=== PATIENT | male | born 1945 | race Caucasian/White ===

== ENCOUNTER 2024-02-16 14:05 | Outpatient (OUT) | payer MEDICARE, SELFPAY | END 2024-02-16 14:06 | disposition home or self-care (01) | LOC: LAB 14:09 | PROVIDERS: PCP Family Medicine; Visit Provider Urology | DX: R35.0 Frequency of micturition (principal) | CPT/HCPCS: 87086 ==

== ENCOUNTER 2024-05-16 14:33 | Emergency (ER) | payer MEDICARE, SELFPAY ==
[2024-05-16 14:50] VITALS: BP 164/80; PULSE 77; TEMP 37; O2SAT 99; BMI 25.7
--- NOTE | 2024-05-16 15:01 | ED_ITS ---
HPI HPI - General Adult General Chief complaint: Urogenital-Male Stated complaint: CONSTIPATION Time Seen by Provider: 05/16/24 14:37 Source: patient Mode of arrival: walk-in History of Present Illness HPI narrative: Patient is a 78-year-old male who presents to the emergency department for worsening urinary symptoms over the last several weeks. He he was treated for urinary tract infection back in February by his urologist, he states he has been off the antibiotics since that time. In the last 2 weeks he has developed pressure and burning with urination and states he is noticing difficulty with his urine stream and is dribbling more. He has not seen any blood in his urine recently. No fevers or vomiting. He has minimal pain in the low abdomen. No flank or back pain. Related Data Allergies Allergy/AdvReac Type Severity Reaction Status Date / Time nitrofurantoin (From Allergy Unknown Verified 05/16/24 14:50 Macrobid) Sulfa (Sulfonamide Allergy Unknown Verified 05/16/24 14:50 Antibiotics) Opioid HPI Opioid Management Most Recent Opioid Data: No Data to Display Review of Systems ROS Constitutional Denies: fever or chills Ears, nose, mouth, and throat Denies: throat pain or nasal congestion Cardiovascular Denies: chest pain Respiratory Denies: shortness of breath Gastrointestinal Reports: abdominal pain; Denies: nausea, vomiting or diarrhea Integumentary/Breast Denies: rash Neurological Denies: numbness in extremities or weakness in extremities Hematologic/Lymphatic Denies: easy bruising or easy bleeding PFSH PFSH Social History Little interest or pleasure in doing things: not at all Feeling down, depressed, or hopeless: not at all Exam Narrative Exam Narrative: Gen.: Awake, alert, in no distress Head: Normocephalic, atraumatic ENT: Moist mucous membranes Respiratory: No respiratory distress Gastrointestinal: Abdomen is soft, nondistended and nontender to palpation Extremities: Moves extremities equally Psych: Normal mood and affect Neuro: No focal neuro deficit Skin: Warm, dry, intact Constitutional Vital Signs, click to edit/add: Last Vital Signs Temp 98.6 F 05/16/24 14:50 Pulse 77 05/16/24 14:50 Resp 16 05/16/24 14:50 BP 164/80 H 05/16/24 14:50 Pulse Ox 99 05/16/24 14:50 O2 Del Method Room Air 05/16/24 14:50 Course Vital Signs Vital signs: Vital Signs Temperature 98.6 F 05/16/24 14:50 Pulse Rate 77 05/16/24 14:50 Respiratory Rate 16 05/16/24 14:50 Blood Pressure 164/80 H 05/16/24 14:50 Pulse Oximetry 99 05/16/24 14:50 Oxygen Delivery Method Room Air 05/16/24 14:50 Temperature 98.6 F 05/16/24 14:50 Pulse Rate 77 05/16/24 14:50 Respiratory Rate 16 05/16/24 14:50 Blood Pressure 164/80 H 05/16/24 14:50 Pulse Oximetry 99 05/16/24 14:50 Oxygen Delivery Method Room Air 05/16/24 14:50 Medical Decision Making MDM Narrative Medical decision making narrative: Labs these are unremarkable, patient with no complaints of fever, vomiting. He reports dribbling with urine stream and dysuria, he has no flank or back pain. He was able to urinate without difficulty in the emergency department. Urine culture was sent although urine specimen is clear. Abdomen is soft and benign in the emergency department. Symptoms have been ongoing for several weeks, patient reevaluated by attending physician and he should follow-up with his urologist. Reevaluated by attending physician prior to discharge. SHARED APC VISIT, PHYSICIAN ATTESTATION: [id number] I performed a substantive part of the MDM during the patient?s E/M visit. I personally evaluated and examined the patient. I personally made or approved the documented management plan and acknowledge its risk of complications. . ? Medical Records Medical records reviewed: Yes I reviewed the patient's medical records Lab Data Lab results reviewed: Yes I reviewed the patient's lab results Labs: Lab Results 05/16/24 05/16/24 Range/Units 15:03 15:17 WBC 7.3 (4.0-11.0) 10^3/uL RBC 4.51 L (4.70-6.10) 10^6/uL Hgb 13.5 L (14.0-18.0) g/dL Hct 39.5 L (42.0-54.0) % MCV 87.6 (80.0-94.0) fL MCH 29.9 (25.9-34.0) pg MCHC 34.2 (29.9-35.2) g/dL RDW 12.2 (11.0-15.0) % Plt Count 183 (150-450) 10^3/uL MPV 11.0 (9.5-13.5) fL Neut % (Auto) 63.0 (43.0-75.0) % Lymph % (Auto) 24.7 (20.5-60.0) % [place] % (Auto) 8.7 (1.7-12.0) % Eos % (Auto) 2.9 (0.9-7.0) % Baso % (Auto) 0.4 (0.2-2.0) % Neut # (Auto) 4.6 (1.4-6.5) 10^3/uL Lymph # (Auto) 1.8 (1.2-3.8) 10^3/uL [place] # (Auto) 0.6 (0.3-0.8) 10^3/uL Eos # (Auto) 0.2 (0.0-0.7) 10^3/uL Baso # (Auto) 0.0 (0.0-0.1) 10^3/uL Abs Immat Gran (auto) 0.02 (0.00-0.03) 10^3/uL Imm/Tot Granulo (auto) 0.3 (0.0-0.5) % Sodium 139 (136-145) mmol/L Potassium 4.3 (3.5-5.1) mmol/L Chloride 106 (98-107) mmol/L Carbon Dioxide 26.4 (21.0-32.0) mmol/L Anion Gap 10.9 BUN 25.0 H (7.0-18.0) mg/dL Creatinine 1.37 H (0.70-1.30) mg/dL Est GFR ( Amer) >60 (>=60 mL/min/1.73m^2) Est GFR (Non-Af Amer) 50 L (>=60 mL/min/1.73m^2) BUN/Creatinine Ratio 18.2 Glucose 121 H (74-106) mg/dL Calcium 9.1 (8.5-10.1) mg/dL Urine Color Lt. yellow (YELLOW) Urine Clarity Clear (CLEAR) Urine pH 6.0 (5.0-9.0) Ur Specific [place] 1.010 (1.005-1.025) Urine Protein Negative (NEG/TRACE) mg/dL Urine Glucose (UA) Negative (NEGATIVE) mg/dL Urine Ketones Negative (NEGATIVE) mg/dL Urine Occult Blood Negative (NEGATIVE) Urine Nitrite Negative (NEGATIVE) Urine Bilirubin Negative (NEGATIVE) Urine Urobilinogen 0.2 (0.2-1.0) EU/dL Ur Leukocyte Esterase Negative (NEGATIVE) Discharge Plan Discharge Chief Complaint: Urogenital-Male Clinical Impression: Dysuria Patient Disposition: Home, Self-Care Time of Disposition Decision: 16:54 Condition: Good Print Language: Polish Instructions: Dysuria (ED) Additional Instructions: Follow up with your urologist Referrals: BROOK MCKINNEY [Primary Care Provider] - 1 week
[2024-05-16 15:27] LABS: Basophils Percent Auto 0.4 % (0.2-2.0); Eosinophils Absolute Auto 0.2 10^3/uL (0.0-0.7); Eosinophils Percent Auto 2.9 % (0.9-7.0); Hematocrit 39.5 % (42.0-54.0); Hemoglobin 13.5 g/dL (14.0-18.0); Immature Granulocytes Abs Auto 0.02 10^3/uL (0.00-0.03); Immature Granulocytes Pct Auto 0.3 % (0.0-0.5); Lymphocytes Absolute Auto 1.8 10^3/uL (1.2-3.8); Lymphocytes Percent Auto 24.7 % (20.5-60.0); Mean Corpuscular HGB Conc 34.2 g/dL (29.9-35.2); Mean Corpuscular Hemoglobin 29.9 pg (25.9-34.0); Mean Corpuscular Volume 87.6 fL (80.0-94.0); Monocytes Absolute Auto 0.6 10^3/uL (0.3-0.8); Monocytes Percent Auto 8.7 % (1.7-12.0); Neutrophils Absolute Auto 4.6 10^3/uL (1.4-6.5); Platelet Count 183 10^3/uL (150-450); Red Blood Count 4.51 10^6/uL (4.70-6.10); Red Cell Distribution Width 12.2 % (11.0-15.0); White Blood Count 7.3 10^3/uL (4.0-11.0)
[2024-05-16 15:35] LABS: Anion Gap 10.9; BUN Creatinine Ratio 18.2; Calcium 9.1 mg/dL (8.5-10.1); Carbon Dioxide 26.4 mmol/L (21.0-32.0); Chloride 106 mmol/L (98-107); Estimated GFR (African America >60 (>=60 mL/min/1.73m^2); Estimated GFR (Non-African Ame 50 (>=60 mL/min/1.73m^2); Glucose 121 mg/dL (74-106); Potassium 4.3 mmol/L (3.5-5.1); Sodium 139 mmol/L (136-145)
[2024-05-16 16:45] LABS: Bilirubin Urine NEGATIVE (NEGATIVE); Blood Urine NEGATIVE (NEGATIVE); Clarity Urine CLEAR (CLEAR); Color Urine LT. YELLOW (YELLOW); Glucose Urine UA NEGATIVE (NEGATIVE); Ketones Urine NEGATIVE (NEGATIVE); Leukocyte Esterase Urine NEGATIVE (NEGATIVE); Nitrite Urine NEGATIVE (NEGATIVE); Protein Urine NEGATIVE (NEG/TRACE); Urobilinogen Urine 0.2 EU/dL (0.2-1.0)
[2024-05-16 16:46] LABS: Urine Microscopic Indicated NO
[2024-05-16 16:55] VITALS: BP 155/82; PULSE 80; O2SAT 99
[2024-05-17 06:49] LABS: BOX Test Reference Lab FRMC; BOX Test Sent Out URINE CX
== END 2024-05-16 17:22 | disposition home or self-care (01) ==
PROVIDERS: Physician Assistant; Emergency Provider Emergency Medicine; PCP Family Medicine
DX: R30.0 Dysuria (principal); Z87.440 Personal history of urinary (tract) infections
CPT/HCPCS: 36415; 80048; 81003; 85025; 87086; 99284

== ENCOUNTER 2024-09-25 09:29 | Outpatient (OUT) | payer MEDICARE, SELFPAY ==
--- OUTSIDE RECORDS SUMMARY | 2024-09-25 09:42 | XMS_ITS | CCD ---
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 cap(s) Oral (given by mouth) At bedtime. traMADol (Ultram 50 mg oral tablet) 1 tab(s) Oral (given by mouth) every 6 hours as needed as needed for pain. Refills: 0. vitamin E 1 tab(s) Oral (given by mouth) every day. Pt unsure of doseage. Take only the medications listed above. Contact your doctor prior to taking any medications not on this list. Diet & Activity Patient Activity Level: Patient Diet: Patient Activity Restrictions: Comment: Patient education materials, if any, will display below Green Light Laser Prostate Treatment, Care After The following information offers guidance on how to care for yourself after your procedure. Your health care provider may also give you more specific instructions. If you have problems or questions, contact your health care provider. What can I expect after the procedure? After the procedure, it is common to have these symptoms for a few days: ? Swelling and discomfort around your urethra. ? Blood in your urine. ? A burning feeling when you urinate after the urinary catheter is removed. You will feel this especially at the end of urination. This feeling usually passes within 3?5 days. For the first few weeks after the procedure, you may still feel: ? A sudden need to urinate (urgency). (more content not included)... Normal [facility]R [place]operative [place] 07[place]2024 [facility] [place] Intra-Op Record Summary Primary Physician: Donta Liao MD Finalized Date/Time: 07/11/24 09:41:56 Pt. Name: JUNIOR Chasidy CHAUDHRY/Sex: 1945 MALE Med Rec #: [id number] Physician: Donta Liao MD Financial #: [id number] Pt. Type: D Room/Bed: / Admit/Disch: 07/11/24 06:12:30 - Institution: Case Times MAGR Entry 1 Patient In Room Time 07/11/24 08:27:00 Out Room Time 07/11/24 09:18:00 Anesthesia Start Time 07/11/24 08:28:00 Stop Time 07/11/24 09:16:00 Surgery Start Time 07/11/24 08:42:00 Stop Time 07/11/24 09:13:00 Last Modified By: Ifrah Burton RN 07/11/24 09:18:25 Case Attendance MAGR Entry 1 Entry 2 Entry 3 Case Attendee Donta Liao MD, Satya S MD Kokinda, Diane RN Role Performed Surgeon - Primary Anesthesiologist of Stable[employer] Record Time In 07/11/24 08:41:00 07/11/24 08:27:00 07/11/24 08:27:00 Time Out 07/11/24 09:13:00 07/11/24 09:18:00 07/11/24 09:18:00 Procedure Cystoscopy PVP Cystoscopy PVP Cystoscopy PVP Greenlight Laser Greenlight Laser Greenlight Laser Prostate Prostate Prostate Last Modified By: Ifrah Burton RN, Diane RN Kokinda, Diane RN 07/11/24 09:18:26 07/11/24 09:18:26 07/11/24 09:18:26 Entry 4 Entry 5 Case Attendee Cassie Urban CST, Leigh-Ann CSFA CSFA CST Role Performed Scrub Personnel Buzzsaw Operator Helper Time In 07/11/24 08:27:00 07/11/24 08:27:00 Time Out 07/11/24 09:18:00 07/11/24 09:18:00 Procedure Cystoscopy PVP Cystoscopy PVP Greenlight Laser Greenlight Laser Prostate Prostate Last Modified By: Ifrah Burton RN, Diane RN 07/11/24 09:18:26 07/11/24 09:18:26 General Comments: HUBER MCKEON-GREENLIGHT REP CATHLEEN ROBERT-CHEN AND NEPHEW REP Surgical Procedures MAGR Pre-Care Text: A.20 Verifies operative procedure, surgical site, and laterality Im.150 Develops individualized plan of care Entry 1 Procedure Cystoscopy PVP Primary Procedure Yes Greenlight Laser Prostate Primary Surgeon Donta Liao MD Surgeon Comment CYSTO PVP GREENLIGHT LASER PROSTATE Start 07/11/24 08:42:00 Stop 07/11/24 09:13:00 Anesthesia Type General Surgical Service Urology Wound Class Clean-Contaminated Technique Details Closure Technique N/A Entire procedure No was performed via laparoscope or robotic assistance Last Modified By: Ifrah Burton RN 07/11/24 09:13:52 Post-Care Text: O.730 The patient's care is consistent with the individualized perioperative plan of care General Case Data MAGR Pre-Care Text: A.350.1 Classifies surgical wound Entry 1 Case Information OR MAGR OR 01 Case Level Level 4 Wound Class Clean-Contaminated Specialty Urology ASA Class 2 Diagnosis Preop Diagnosis BPH Postop Same As Preop Yes Postop Diagnosis BPH Blunt or No Is the procedure No penetrating injury considered occured prior to Emergent/Urgent? the start of the procedure: Last Modified By: Ifrah Burton RN 07/11/24 08:42:39 Post-Care Text: O.760 Patient receives consistent and comparable care regardless of the setting Time Out MAGR Entry 1 Procedure(s) Cystoscopy PVP Greenlight Laser Prostate Time Out Checklist Verifications Team Introductions Yes Confirmed Identity, Yes Completed Procedure, Incision Site, and Consent(s) Presence of Yes Site Verification, Yes Necessary Site Marking, Site Procedural Marking Equipment, Devices, Alternative, and/or and Implants Site Marking Verified Exception in Accordance with Facility Policy Anesthesia Review Antibiotic Received Yes All Anesthesia Yes Within an Concerns Addressed Appropriate Time Interval Prior to Surgical Incision Surgeon Review Anticipated Blood Yes Expected Case Yes Loss Risk Addressed Duration Addressed Critical and Yes Non-Routine Steps to be Performed Addressed Nurse Review Equipment Yes Fire Risk Yes Checks/Concerns Assessment Addressed Completed and Interventions Performed Diagnostic and Yes Sterilization n/a Radiological Test Concerns Addressed Results Displayed are Appropriate and Labeled Other Concerns n/a Addressed Time Out Donta Liao MD, Time Out Time 07/11/24 08:41:00 Participants Eduardo Kraus MD, Ifrah Burton RN, Suman Fuller CSFA SURGICAL NURSE, Cassie Urban SURGICAL NURSE CSFA Last Modified By: Ifrah Burton RN 07/11/24 08:42:13 Patient Positioning MAGR Pre-Care Text: A.280 Identifies baseline musculoskeletal status Im.40 Positions the patient Im.80 Applies safety devices Entry 1 Procedure Cystoscopy PVP Body Position Low Lithotomy Greenlight Laser Prostate Left Arm Position Extended on padded arm Right Arm Position Extended on padded arm board board Left Leg Position Secured in Stirrup Right Leg Position Secured in Stirrup Feet Uncrossed? Yes Press Points Checked Yes Positioning Device Safety Strap, Stirrups Outcome Met (O.80) Yes Last Modified By: Ifrah Burton RN 07/11/24 07:25:31 Post- (more content not included)... [facility] [place] [facility] [place] Summary Primary Physician: Donta Liao MD Finalized Date/Time: 07/11/24 09:53:05 Pt. Name: JUNIOR Chasidy CHAUDHRY/Sex: 1945 MALE Med Rec #: [id number] Physician: Donta Liao MD Financial #: [id number] Pt. Type: D Room/Bed: / Admit/Disch: 07/11/24 06:12:30 - Institution: PACU Case Times MAGR Entry 1 In PACU I 07/11/24 09:19:00 Discharge from PACU 07/11/24 09:53:00 I Last Modified By: Allison Solomon RN 07/11/24 09:52:51 Finalized By: Allison Solomon RN Document Signatures Signed By: Allison Solomon RN 07/11/24 09:53 [facility] MAGR Postoperative Record MAGR Phase II Record Summary Primary Physician: Donta Liao MD Finalized Date/Time: 07/11/24 11:55:44 Pt. Name: JUNIOR Chasidy CHAUDHRY/Sex: 1945 MALE Med Rec #: [id number] Physician: Donta Liao MD Financial #: [id number] Pt. Type: D Room/Bed: / Admit/Disch: 07/11/24 06:12:30 - Institution: [facility] II Case Times MAGR Pre-Care Text: Patient is free from s/s of injury. Patient remains free from compromised physical state related to surgery or anesthesia. Patient comfort maintained. Patient/family verbalize understanding of discharge instructions. Entry 1 In PACU II 07/11/24 09:55:00 Discharge from PACU 07/11/24 11:38:00 II Last Modified By: Megan Castro RN 07/11/24 11:55:39 Post-Care Text: The patient remains free from s/s of injury. Patient's vital signs stable, circulation maintained, return to preop mental and physical status, opsite/dressing intact, minimal or absent nausea and vomiting, tolerates po intake. Patient verbalizes adequate pain control. Patient/family express understanding of discharge instructions. Finalized By: Megan Castro RN Document Signatures Signed By: Megan Castro RN 07/11/24 11:55 [facility] MAGR Preoperative Recordon 0 07-11-2024 MAGR Preoperative Record MAGR Pre-Op Record Summary Primary Physician: Donta Liao MD Finalized Date/Time: 07/11/24 08:52:30 Pt. Name: JUNIOR Chasidy CHAUDHRY /Sex: 1945 MALE Med Rec #: [id number] Physician: Donta Liao MD Financial #: [id number] Pt. Type: D Room/Bed: / Admit/Disch: 07/11/24 06:12:30 - Institution: Pre-Op Case Times MAGR Pre-Care Text: Patient will be optimally prepared for surgery. Patient is free from s/s of injury. Provide information to patient/family related to plan of care. Verify patient allergies. Confirm identity and verify consent before the operative or invasive procedure. Entry 1 Patient Arrival Time 07/11/24 06:22:00 Preop Departure 07/11/24 08:26:00 Last Modified By: Ifrah Burton RN 07/11/24 08:52:25 Post-Care Text: Patient is prepared mentally and physically and is ready for surgery. The patient remains free from s/s of injury. Patient/family express understanding of plan of care and participate in decisions affecting his or her perioperrative plan of care. Allergies documented appropriately. Patient identifiers and consent correct. General Comments: Reviewed for the next 24 hours not to do anything that requires concentration. Denies chest pain, shortness of breath or illnessess. Denies pacemaker/defib. Denies sleep apnea. Finalized By: Ifrah Burton RN Document Signatures Signed By: Ifrah Burton RN 07/11/24 08:52 [facility] Patient Handouton 07-11-2024 Patient Handout Urology Green Light Laser Prostate Treatment, Care After The following information offers guidance on how to care for yourself after your procedure. Your health care provider may also give you more specific instructions. If you have problems or questions, contact your health care provider. What can I expect after the procedure? After the procedure, it is common to have these symptoms for a few days: ? Swelling and discomfort around your urethra. ? Blood in your urine. ? A burning feeling when you urinate after the urinary catheter is removed. You will feel this especially at the end of urination. This feeling usually passes within 3?5 days. For the first few weeks after the procedure, you may still feel: ? A sudden need to urinate (urgency). ? A need to urinate often. Follow these instructions at home: Medicines ? Take zgqo-moh-ucwjspg and prescription medicines only as told by your health care provider. These medicines may include stool softeners. ? If you were prescribed an antibiotic medicine, take it as told by your health care provider. Do not stop taking the antibiotic even if you start to feel better. Bathing ? Do not take baths, swim, or use a hot tub until your health care provider approves. Ask your health care provider if you may take showers. You may only be allowed to take sponge baths. Activity ? Rest as told by your health care provider. ? Do not drive or operate machinery until your health care provider says that it is safe. ? Do not ride in a car for long periods of time, or as told by your health care provider. ? Do not do strenuous exercises for 1 week or as told by your health care provider. Strenuous exercises are exercises that require a lot of effort. ? Do not lift anything that is heavier than 10 lb (4.5 kg), or the limit that you are told, until your health care provider says that it is safe. ? Avoid sex for 4?6 weeks, or as told by your health care provider. ? Return to your normal activities as told by your health care provider. Ask your health care provider what activities are safe for you. Preventing constipation You may need to take these actions to prevent or treat constipation: ? Drink enough fluid to keep your urine pale yellow. ? Take izoa-wdz-kbwopvk or prescription medicines. ? Eat foods that are high in fiber, such as beans, whole grains, and fresh fruits and vegetables. ? Limit foods that are high in fat and processed sugars, such as fried or sweet foods. General instructions ? Do not strain when you have a bowel movement. Straining may lead to bleeding from the prostate. This may cause blood clots and trouble urinating. ? Do not use any products that contain nicotine or tobacco. These products include cigarettes, chewing tobacco, and vaping devices, such as e-cigarettes. If you need help quitting, ask your health care provider. ? If you have a urinary catheter, care for it as told by your health care provider. ? Keep all follow-up visits. This is important. Contact a health care provider if: ? You have signs of infection, such as: ? Fever or chills. ? Swelling around your urethra that is getting worse. ? Urine that smells very bad. ? Struggling to urinate or pain or burning when you urinate. ? You have trouble having a bowel movement. ? You have blood in your urine for more than 2 days after the procedure. ? You have trouble having or keeping an erection. ? No semen comes out during orgasm (dry ejaculation). ? You have a urinary catheter still in place and you have: ? Spasms or pain. ? Problems with the catheter or your catheter is blocked. Get help right away if: ? You cannot urinate after your catheter is removed. ? Your urine is dark red or has blood clots in it. ? You have blood in your stool. ? You have severe pain that does not get better with medicine. ? You develop swelling or pain in your leg. ? You develop chest pains or shortness of breath. These symptoms may be an emergency. Get help right away. Call 911. ? Do not wait to see if the symptoms will go away. ? Do not drive yourself to the hospital. Summary ? After the procedure, it is common to have swelling and discomfort around your urethra and blood in your urine for a few days. ? Some men may have problems urinating after this procedure. These problems should go away after a few days. If you have pain or burning while urinating, contact your health care provider. ? If you have a catheter after this procedure, care for it as told by your health care provider. ? If you have severe pain, dark red urine, or urine with blood clots, get medical help right away. This information is not intended to replace advice given to you by your health care provider. Make sure you discuss any questions you have with your health care provider. Document Revised: 01/21/2022 Document Reviewed: 01/21/2022 Elsevier Patient Educ (more content not included)... [facility] Coding Summaryon 07-01-2024 Coding Summary HTMLBase 64 FohhjznzZRn0yLh+PGhlY WQ+MH5FABToK93odBDzkK 9kD8WCTOmYMbcjVQEDLTc MKkMdziAcOA1saWJgIOEb IC8+FH3yWLJlVvdofOYnb 6N1eQJ7F93taz5yBOpmuG F9KMMaMmJwncvqn9mpyUx 6IDcuNmluOyBt CNBkzR68KMA6pY30Us98q BYyhVNqm0fhiOo5HqKsGT FkVZO8uMdzIBtge5LbBAE uG74pcDPjo8B0 CYNbvDlskLSvRgZqnUJ9j E8nXJmfeeism3qxomzxIp j8vz33wFXax0X6sFL4O2V kocM5ACBbmYUz EtexmULTeE6ugzjgu8svp memDhDzIDGhBHx5HNy1FG GgcQamMeVfJS82VFP2AVV tkiEdL7NmMFUp sXjoCaQ8d2H0Zu8PS4FKF lxpE1WATHQFROxuqPL+PC 28op13Q5HqDutaTwy1UJK nREQ8xBC3wK1y VVMwFJrsc9G6uNB9C5Zha rOssh8si8xzMHPoQBdlG2 9rlZDuf6C4FGAtwNT5CNZ qvYspZoOjaD16 Oyc+EVEedGsdx5QcPzlcg 3xni4ccyHg9KdbrQDIgzj ZqlYspESX3z6WhIy7cXSA dyNK8rHU5vZ3l UdLbRjW3CWnjO397QmHkb JNvIljzL13eZ9IbyPZ+PH StRod2BYMkeWrsEU3uQ9I hZGRpbmctbGVm tVxgTK0vHSMynegdKJFro N8uYVWeF1h8MdArBzE9HM yjB3IhSYZgnfusTw61dA5 rLdXjFpH6ZOco K5RnztR3VBBsnKUsDNnxN YT4Y67zb9P5XVNpPNEoDD Z6bPM7dT8tyRmtjnqrnYI mdDsgdmVydGlj MKwaIPohX908TGCaoCxdC kNvZGluZyBEYXRlOiAgMD IvMTcvMjAyNTwvdGQ+PHR pWFP6tHpnQZZt oMJvWXpyYx5jxFruxWlfN O9uHXPvjcrsYSNlaK2xWP MsgHUcxPbsRJ4qUVBjgba ck148UyPwGLA4 WKBkeKZhU3FhyR9tHjBgK SIwVWAyI0QewLIbMPlhH4 66AUvoNiU3JIJcxsSxK5F sLWFsaWduOiB0 t1U9Uy5Gw1QfwbewY8Tft ZFbOyVcMhvhMMk3E0CpUs wvdHI+GR20OANfME37PSz 3LMU9hCnpXZnq BRRvD1ScnL9rJaFgQCMmH GRkOyc+PHRhYmxlIHdpZH RoPScxMDAlJyBzdHlsZT0 wGu8xVHDpMGRh uFzxmVZzGvXgw8ckMBInT JdoNR5jjZscB0AowHQ5WX Xly0w1Cn38L60xL9AucGF +VGKggRW0hVN8 uK9lLvIfKbI6OMmiZ409F vYpqBTnNcjgp4oii9etuQ w0ErJ2LNGwvaZykHyfJHS 7f3IpXv16K41w IHdpZHRoPSIxNSUiIHZhb Nhmbp7ynJ0eIh0+PGNvbC E9vXH5wU8zKyGaFwQ7DFo qY206LmFhvVYn Emkzx1mht9zncYo5FqByV NDasqCboGiwYUC1u7PeCr 07H4WwpIchf3NaLnx7aq1 5yUPqs3J8wBY7 Q5OdQPHtlwediOYjwTlzU W4wWGOcfkwzFUEdlM6fMS OnW9f2TlJvRmP0QFteJ7Q ionX9SXPmpSNo DANomSCJzP4jtghot6fhu fbwOjXuPXZyLDz3NUw2WT MmzAxqDqJdGNX4IfD3IUB 1vXUjqK7yyVmx cthlaJ3bDcn+HGB0fXDwe DDRRQ0eOjnmsOT+PHRkIH K5jCasDSxiLWTwkD9tQLX pT0h0PuBmTyN9 VXveW4QrczH5SDZqjUIqR OOcdUMRbP8zcrgfg7ydzb ufSlHhCLLaNFv3VJd3TID saWduOiBsZWZ0 RgH9TGN6lFLucU3aiQurv uqelI7oQdg+QmlydGggRG Q2NSq1E1SyUuk5FSLceQv yZE9yyJOsIYoc Rt0rhBhphUtpAD2kJPTtb jqbb741PqVsb0wwRDAnpY WtCWzxCRR7T99kd1G5WMP oNQWyQDI9nVX7 hM7acNiwnphwpAEyxPodt qCpwJfiVTidEHgwB426IS EwaJmrVgLiBHt0H5TcXhr 1UJYdiYiuLB4u wHKeQCwxVm5vwSdsfQiaQ L4nEKBppdxdz570TlHzz7 jgMYCivXBoIUqtUDN0K43 ci7V7YWIrJJFi SHP7nWU5uO0eeFtdzvjir GVmdDsgdmVydGljYWwtYW hiJ789BXUcyFxrIdTytSr 0P9BcGlr9CQKj nXrsHQ7xfWOlOXlsFb1dc VkxyVfcFM9sGLWmtfoyn6 31MiRrx0zdCJKswRFuOGd pBUD4U13dr2Y0 OKTpFGYuEWV0wGS2eK9ys GlnbjogbGVmdDsgdmVydG ntKEcpMClgA860NFVilMx nPlBhdGllbnQg LTffIWq1B8DwUqzxgIX+P K42KZQqVE81xKDdmETke2 zlaVf0FeLqTISrKZL9lOe iXIwcj1LdOGXi J94ehJLqb2X5ZITpkUhei TMeIhThjUY7gM1pSJmlpq ljk9hppmvdQnjpd4bove5 5iY66Q83vDMdf ZHRoPSIzMCUiIHZhbGlnb a4maB6oDg7+RFZaqWD3wB P5hG2sOQGaClE8KMeyI44 9InRvcCIvPjxj t8idl9ntmEc0BfU9RXNlu nGvaGixOUA5h4EiYo09F0 9sIHdpZHRoPSIyMCUiIHZ naPqukc5hcE3a Ii8+KCPaiXR9yAO3xS3vQ aIzIgX4OZnaN400CwSekN RuQdqfF29kV8ExeUB+PHR aKpv9UVFinAyo VH2idUMzRAbxOg8nTUU1K iWdTpJlVIkzT6MpXZVlif zqeknrtCL9AOWaCAEwpK2 3Xc4pmPadEAYh rNUDeQ6fzngae8oalvawT fUxDLSpNHv4PBg0TDLfgE mnXoDfTNC0VaC2XUG5iKU gjM8auDqrfluh gU5aK8GaLOJpbrmyMh35h I8mLmHdLpL7EAqmGkl+QU FIGY0IIJWSJU9KT8XhDZp vdGQ+PHRkIHN0 hMviEKxiAWXemH9nPBAmA 9o1ZtSuQiL5QTbiS4XtKO GxikuiFp63fC4hIrTjSaP 3GXygN6MbobX0 JVQgqCPeLUtjTAB5H30hh 1O1KCQiEHRkXWY3eOK7aU 1hbGlnbjogbGVmdDsgdmV ydGljYWwtYWxp I804SQFkgWgoKcIoVsWtT uE9SVO8A2EhIuh4CGUjgB ooHR1qzSLwEMegHv0qmNo sgAqiLA5oMCAo hzttBPSumZ3fGODbuOOqn DalRZ7vZLIndnyjj428Cc GhKOV8RMHhvPBpI9KewH5 yOiAjMDAwMDAw Y8FwcZCcDHxaM591MMwdA iD9YEMmgxJcB1LrQIZtyG dnAaA0b2L4Rq98KGGWXKR yczwvdGQ+PHRk TLP9cKuzUIgzBDZejG1hI AZtD7c0EiKqZpM7POziK5 VfQCZegoklAq83dO9xZqX wGwT9NFohL9Fa zmJ0PHBfiGHxQSjwMCX7S 13tv6L0GUCdEUKrHLJ0gB T0qX5jyCwmogxfxVTvkFk gdmVydGljYWwt XIcwW737SFQcnGqkCj2LF BJ8A6LvRvy4TFBzlLdsNH 9eaXXmJUbyRi3wuVtkoBx gVU3yXMHeaepp XNViwE4iKUWbgCXdxZnoZ C6qWFWxaekfn248QlSuZL R8CGSljUQiE6MujQ1pKsY gWHJwQNDlD7Op tRIqPMrgG353OYwfFyE0N SPwdeDiP5OcUIXjlSqgPr R4k8S8Ww9ARCpnvDS+PC9 0ls40C3PoKeqc Qbc2MWFxHKB7dMI1zV1wQ JYxJQyuk4U5dJQ8E6Prfc Jcrj2kc2gcLLSeTYsyR44 suJPvu9X6OGCh sTC6ZAAdcHxjCyHjyF43K yc+YVKtmTzxu8UcDinac3 wvb1bilWb1HrUdZBXecrM nrGkmKLR0t5Oo Ih65M53nYZznURNoTCPhG EEcOORbsXqqap0hmH2aDn 8+QQLwzLZ6uLJ6iA2eOwY uNeR3CNlnG971 GeFouHNaPqjhh6gcx7hiu Kd8EbEdDLLciwLzqWlwFM P1k5JmLx80D5MlbGwff0U vFqs4fi30bZJu w5V6uOP3A0GrVFRtvaeud UBozNnsVZ9tNNQtfjfeSD TneS6pVHZyQ3w8ChLwXjL 1KUqvY4WulqV5 CVKxzKBhPCDurTUJiR5wa yyxa3wybhxfDmFtWGEkOW t0AOi2NYNvxTjqInYqQKJ 5XkB0ORI9tNHz gG1hxIajjgwmuR5eTnf+U Zm1f8nlzGCjQA0ijMJ6QF 19ST52pIJjo4I3rUJ3K2Y hZGRpbmctcmln oTU5ENDtBSJoiP33Ra0fi EkiAs9tMSIjRFZ6LOManE BoI1QagA9oAyEfMJMgKDK sM4PwgNDcRFlm X794TIzxBnC9XNYdnwZgQ 1WtKEYpgCimUiC6a9E2Xz 0NLK52WR16YN50jUUzu4Z 4aFZ6L6QfEYAv ggdxewosyCO4RFRkLBScg I49Sb2wgXigGy2fFJDjCO B3KJJluCDqN0AyuD3aGsZ dSXXjVRAgE7Jo gUPkFSkbQ862OKakBxX9C TRxtjOmI8SgLUGgyVqmPt Q1i7P8Nc6JHp04MP37AJ0 6nVVnb4C9pEU1 J1MqSGQpwjtpdtyvdEK1N QEuAFZjlV38Vy3hyUwyNx 6rUEAzUYT8YJBvlUDnC4S ewZ6pQsHvDLPp TYJjJ3TsgUMlSFvlF258W SmoRuS0WHGuwmTsX5CbJG FaqSqyWlZ6l8R5Ny5ANJl kwcv6Z3TuOmkr dHI+QG47ESSyVV50mLKrd LAex5pbeSd8GlFdEXNtPS K6uQmvOYpyl2OvBAEvH44 aiQFkx2Q6UEFc bGx (more content not included)... [facility] C Urineon 06-28-2024 C Urine No growth at 2 days. Normal [facility] Comment on above: Performed By: #### [id number] ####[facility] (DEFAULT)[address] [place] [id number] Progress Note - Nurseon 06-15 Progress Note - Nurse Dr Dickerson reviews pt chart and no new orders were received. [Electronically Signed on: 06/28/2024 09:49 EST] Leatha Bhardwaj RN [Verified on: 06/28/2024 09:49 EST] Leatha Bhardwaj RN [facility] Provider Orderson 2024 Provider Orders [id number] [facility] .Auto Diff 1on 06-26-2024 Auto [place] % 10 % Normal 05-26 [facility] Comment on above: Performed By: #### 1 [id number], [id number] ####[facility] (DEFAULT)[address] [place] [address] 34499 Baso Abs# 0.0 x10 Normal 0.0-0.2 [facility] Comment on above: Performed By: #### 1 [id number], [id number] ####[facility] (DEFAULT)[address] [place] [address] 73908 Basophils/100 WBC (Bld) 0.6 % Normal 0.2-2.0 [facility] Comment on above: Performed By: #### 1 [id number], [id number] ####[facility] (DEFAULT)[address] [place] [address] 00547 Eos Abs# 0.3 x10 Normal 0.0-0.4 [facility] Comment on above: Performed By: #### 1 [id number] ####[facility] (DEFAULT)[address] [place] [address] Eosinophils/100 WBC (Bld) 5.0 % High 0.9-4.0 [facility] Comment on above: Performed By: #### 1 [id number], [id number] ####[facility] (DEFAULT)[address] [place] [address] Lymph Abs# 1.6 x10 Normal 1.3-2.9 [facility] Comment on above: Performed By: #### 1 [id number], [id number] ####[facility] (DEFAULT)[address] [place] [address] Lymphocytes/100 WBC (Bld) 24 % Normal 14-48 [facility] Comment on above: Performed By: #### 1 [id number] ####[facility] (DEFAULT)[address] [place] [address] [place] Abs# 0.7 x10 Normal 0.0-0.8 [facility] Comment on above: Performed By: #### 1 [id number], [id number] ####[facility] (DEFAULT)[address] [place] [id number] Neut Abs# 4.0 x10 Normal 1.5-9.2 [facility] Comment on above: Performed By: #### 1 [id number], [id number] ####[facility] (DEFAULT)[address] [place] [address] Neutrophils/100 WBC (Bld) 60 % Normal 44-88 [facility] Comment on above: Performed By: #### 1 [id number], [id number] ####[facility] (DEFAULT)[address] [place] [address] CBC w/ Auto Diffon 02-12-202 5 Erythrocyte distribution width (RBC) [Ratio] 13.3 % Normal 11.5-15.0 [facility] Comment on above: Performed By: #### 1 [id number], [id number] ####[facility] (DEFAULT)[address] [place] [address] Hematocrit (Bld) [Volume fraction] 41.5 % Normal 34.8-51.9 [facility] Comment on above: Performed By: #### 1 [id number] ####[facility] (DEFAULT)[address] [place] [address] Hemoglobin (Bld) [Mass/Vol] 14.4 g/dL Normal 11.8-17.7 [facility] Comment on above: Performed By: #### 1 [id number] ####[facility] (DEFAULT)[address] [place] [address] Man Diff? Auto Invalid Interpretation Code [facility] Comment on above: Performed By: #### 1 [id number] ####[facility] (DEFAULT)[address] [place] [address] MCH (RBC) [Entitic mass] 31 pg Normal 24-34 [facility] Comment on above: Performed By: #### 1 [id number] ####[facility] (DEFAULT)[address] [place] [address] MCHC (RBC) [Mass/Vol] 35 g/dL Normal 26-37 [facility] Comment on above: Performed By: #### 1 [id number] ####[facility] (DEFAULT)[address] [place] [address] MCV (RBC) [Entitic vol] 89 fL Normal 81-100 [facility] Comment on above: Performed By: #### 1 [id number] ####[facility] (DEFAULT)[address] [place] [address] Platelet 179 x10 Normal 138-427 [facility] Comment on above: Performed By: #### 1 [id number], [id number] ####[facility] (DEFAULT)[address] [place] [id number] Platelet mean volume (Bld) [Entitic vol] 9.3 fL Normal 6.3-10.2 [facility] Comment on above: Performed By: #### 1 [id number], [id number] ####[facility] (DEFAULT)[address] [place] [address] RBC 4.67 x10 Normal 3.70-5.30 [facility] Comment on above: Performed By: #### 1 [id number], [id number] ####[facility] (DEFAULT)[address] [place] [address] WBC 6.6 x10 Normal 3.5-10.5 [facility] Comment on above: Performed By: #### 1 [id number], [id number] ####[facility] (DEFAULT)[address] [place] [id number] Ambulatory Visit Summaryon 0 11-06-2023 Ambulatory Visit Summary JUNIOR Chasidy CHAUDHRY :1945 Visit Date:11/06/2023 Ambulatory Visit Instructions Your Diagnosis BPH with urinary obstruction Dysuria Gross hematuria Your Care Team Attending Physician - MUSTAPHA MCCAIN, Boubacar [place] Primary Care Physician - Pk Muse MD This Is Your Medications List dutasteride (dutasteride 0.5 mg Cap) Contact prescribing physician if questions or concerns aspirin (aspirin 81 mg Oral EC Tab) glucosamine (glucosamine 500 mg Cap) omega-3 polyunsaturated fatty acids (Fish Oil) Procedures Performed Urodynamics (05/04/2021), Arthroscopy of shoulder (07/06/2017), bilateral carpal tunnel release, Cataracts, Colonoscopy, excision of heel spur, left total knee arthroplasty, Tracheostomy, tracheostomy closure. Discharge Vitals Temperature (Temporal Artery) 37 ?C Heart Rate (Peripheral) 59 Respiratory Rate 16 Blood Pressure 123/69 Height 168 cm Height 66 in Weight 69.2 kg Weight 152.24 lb BMI 24.52 What to do next Scheduled Follow-Up Appointments Monday 2:45 PM EDT With: MUSTAPHA MCCAIN, Boubacar [place] Where: [facility] Normal [address] [place] [address]- \.br\ You Need to Schedule the Following Appointments\.br\ Follow Up with MUSTAPHA MCCAIN, Boubacar [place], URL When: \.br\ Where:\.br\ [facility] [address]\.br\ [place] [address]-\.br\ [id number]\.br\ Medications\.br\ What How Much When Instructions\.br\ Unchanged dutasteride (dutasteride 0.5 mg Cap) 1 Capsules By Mouth Every day\.br\ Unchanged aspirin (aspirin 81 mg Oral EC Tab) 1 Tablets By Mouth Every day Contact prescribing physician if questions or concerns \.br\ Unchanged glucosamine (glucosamine 500 mg Cap) By Mouth Every day Contact prescribing physician if questions or concerns \.br\ Unchanged omega-3 polyunsaturated fatty acids (Fish Oil) 1,400 Milligram By Mouth Every day Contact prescribing physician if questions or concerns \.br\ Allergies\.br\ Latex (Itching)\.br\ statins (Hives)\.br\ Problems\.br\ Ongoing - Any problem that you are currently receiving treatment for.\.br\ BPH with urinary obstruction\.br\ Carpal tunnel syndrome\.br\ CKD (chronic kidney disease), stage III\.br\ Contact dermatitis\.br\ Dysuria\.br\ Gross hematuria\.br\ Head injury\.br\ Headache\.br\ Tinnitus\.br\ Historical - Any problem that you are no longer receiving treatment for.\.br\ arthritis\.br\ fell off of roof\.br\ Hypercholesterolemia\ .br\ Patient Survey\.br\ You may receive a survey via text or e-mail asking about your office visit. Please share your experience with us by completing your survey. We appreciate your feedback and thank you for choosing us for your care.\.br\ Education Materials\.br\ Benign Prostatic Hyperplasia\.br\ \.br\ Benign prostatic hyperplasia (BPH) is an enlarged prostate gland that is caused by the normal aging process. The prostate may get bigger as a man gets older. The condition is not caused by cancer. The prostate is a walnut-sized gland that is involved in the production of semen. It is located in front of the rectum and below the bladder. The bladder stores urine. The urethra carries stored urine out of the body.\.br\ An enlarged prostate can press on the urethra. This can make it harder to pass urine. The buildup of urine in the bladder can cause infection. Back pressure and infection may progress to bladder damage and kidney (renal) failure.\.br\ What are the causes?\.br\ This condition is part of the normal aging process. However, not all men develop problems from this condition. If the prostate enlarges away from the urethra, urine flow will not be blocked. If it enlarges toward the urethra and compresses it, there will be problems passing urine.\.br\ What increases the risk?\.br\ This condition is more likely to develop in men older than 50 years.\.br\ What are the signs or symptoms?\.br\ Symptoms of this condition include:\.br\ ? \.br\ Getting up often during the night to urinate.\.br\ ? \.br\ Needing to urinate frequently during the day.\.br\ ? \.br\ Difficulty starting urine flow.\.br\ ? \.br\ Decrease in size and strength of your urine stream.\.br\ ? \.br\ Leaking (dribbling) after urinating.\.br\ ? \.br\ Inability to pass urine. This needs immediate treatment.\.br\ ? \.br\ Inability to completely empty your bladder.\.br\ ? \.br\ Pain when you pass urine. This is more common if there is also an infection.\.br\ ? \.br\ Urinary tract infection (UTI).\.br\ How is this diagnosed?\.br\ This condition is diagnosed based on your medical history, a physical exam, and your symptoms. Tests will also be done, such as:\.br\ ? \.br\ A post-void bladder scan. This measures any amount of urine that may remain in your bladder after you finish urinating.\.br\ ? \.br\ A digital rectal exam. In a rectal exam, your health care provider checks your prostate by putting a lubricated, gloved finger into your rectum to feel the back of your prostate gland. This exam detects the size of your gland and any abnormal lumps or growths.\.br\ ? \.br\ An exam of your urine (urinalysis).\.br\ ? \.br\ A prostate specific antigen (PSA) screening. This is a blood test used to screen for prostate cancer.\.br\ ? \.br\ An ultrasound. This test uses sound waves to electronically produce a picture of your prostate gland.\.br\ Your health care provider may refer you to a specialist in kidney and prostate diseases (urologist).\.br\ How is this treated?\.br\ Once symptoms begin, your health care provider will monitor your condition (active surveillance or watchful waiting). Treatment for this condition will depend on the severity of your condition. Treatment may include:\.br\ ? \.br\ Observation and yearly exams. This may be the only treatment needed if your condition and symptoms are mild.\.br\ ? \.br\ Medicines to relieve your symptoms, including:\.br\ ? \.br\ Medicines to shrink the prostate.\.br\ ? \.br\ Medicines to relax the muscle of the prostate.\.br\ ? \.br\ Surgery in severe cases. Surgery may include:\.br\ ? \.br\ Prostatectomy. In this procedure, the prostate tissue is removed completely through an open incision or with a laparoscope or robotics.\.br\ ? \.br\ Transurethral resection of the prostate (TURP). In this procedure, a tool is inserted through the opening at the tip of the penis (urethra). It is used to cut away tissue of the inner core of the prostate. The pieces are removed through the same opening of the penis. This removes the blockage.\.br\ ? \.br\ Transurethral incision (TUIP). In this procedure, small cuts are made in the prostate. This lessens the prostate's pressure on the urethra.\.br\ ? \.br\ Transurethral microwave thermotherapy (TUMT). This procedure uses microwaves to create heat. The heat destroys and removes a small amount of prostate tissue.\.br\ ? \.br\ Transurethral needle ablation (TUNA). This procedure uses radio frequencies to destroy and remove a small amount of prostate tissue.\.br\ ? \.br\ Interstitial laser coagulation (ILC). This procedure uses a laser to destroy and remove a small amount of prostate tissue.\.br\ ? \.br\ Transurethral electrovaporization (TUVP). This procedure uses electrodes to destroy and remove a small amount of prostate tissue.\.br\ ? \.br\ Prostatic urethral lift. This procedure inserts an implant to push the lobes of the prostate away from the urethra.\.br\ Follow these instructions at home:\.br\ ? \.br\ Take tuhz-qfw-lumyktz and prescription medicines only as told by your health care provider.\.br\ ? \.br\ Monitor your symptoms for any changes. Contact your health care provider with any changes.\.br\ ? \.br\ Avoid drinking large amounts of liquid before going to bed or out in public.\.br\ ? \.br\ Avoid or reduce how much caffeine or alcohol you drink.\.br\ ? \.br\ Give yourself time when you urinate.\.br\ ? \.br\ Keep all follow-up visits. This is important.\.br\ Contact a health care provider if:\.br\ ? \.br\ You have unexplained back pain.\.br\ ? \.br\ Your symptoms do not get better with treatment.\.br\ ? \.br\ You develop side effects from the medicine you are taking.\.br\ ? \.br\ Your urine becomes very dark or has a bad smell.\.br\ ? \.br\ Your lower abdomen becomes distended and you have trouble passing urine.\.br\ Get help right away if:\.br\ ? \.br\ You have a fever or chills.\.br\ ? \.br\ You suddenly cannot urinate.\.br\ ? \.br\ You feel light-headed or very dizzy, or you faint.\. [facility] Patient Educationon 11-06-19 Patient Education Urology Benign Prostatic Hyperplasia Benign prostatic hyperplasia (BPH) is an enlarged prostate gland that is caused by the normal aging process. The prostate may get bigger as a man gets older. The condition is not caused by cancer. The prostate is a walnut-sized gland that is involved in the production of semen. It is located in front of the rectum and below the bladder. The bladder stores urine. The urethra carries stored urine out of the body. An enlarged prostate can press on the urethra. This can make it harder to pass urine. The buildup of urine in the bladder can cause infection. Back pressure and infection may progress to bladder damage and kidney (renal) failure. What are the causes? This condition is part of the normal aging process. However, not all men develop problems from this condition. If the prostate enlarges away from the urethra, urine flow will not be blocked. If it enlarges toward the urethra and compresses it, there will be problems passing urine. What increases the risk? This condition is more likely to develop in men older than 50 years. What are the signs or symptoms? Symptoms of this condition include: ? Getting up often during the night to urinate. ? Needing to urinate frequently during the day. ? Difficulty starting urine flow. ? Decrease in size and strength of your urine stream. ? Leaking (dribbling) after urinating. ? Inability to pass urine. This needs immediate treatment. ? Inability to completely empty your bladder. ? Pain when you pass urine. This is more common if there is also an infection. ? Urinary tract infection (UTI). How is this diagnosed? This condition is diagnosed based on your medical history, a physical exam, and your symptoms. Tests will also be done, such as: ? A post-void bladder scan. This measures any amount of urine that may remain in your bladder after you finish urinating. ? A digital rectal exam. In a rectal exam, your health care provider checks your prostate by putting a lubricated, gloved finger into your rectum to feel the back of your prostate gland. This exam detects the size of your gland and any abnormal lumps or growths. ? An exam of your urine (urinalysis). ? A prostate specific antigen (PSA) screening. This is a blood test used to screen for prostate cancer. ? An ultrasound. This test uses sound waves to electronically produce a picture of your prostate gland. Your health care provider may refer you to a specialist in kidney and prostate diseases (urologist). How is this treated? Once symptoms begin, your health care provider will monitor your condition (active surveillance or watchful waiting). Treatment for this condition will depend on the severity of your condition. Treatment may include: ? Observation and yearly exams. This may be the only treatment needed if your condition and symptoms are mild. ? Medicines to relieve your symptoms, including: ? Medicines to shrink the prostate. ? Medicines to relax the muscle of the prostate. ? Surgery in severe cases. Surgery may include: ? Prostatectomy. In this procedure, the prostate tissue is removed completely through an open incision or with a laparoscope or robotics. ? Transurethral resection of the prostate (TURP). In this procedure, a tool is inserted through the opening at the tip of the penis (urethra). It is used to cut away tissue of the inner core of the prostate. The pieces are removed through the same opening of the penis. This removes the blockage. ? Transurethral incision (TUIP). In this procedure, small cuts are made in the prostate. This lessens the prostate's pressure on the urethra. ? Transurethral microwave thermotherapy (TUMT). This procedure uses microwaves to create heat. The heat destroys and removes a small amount of prostate tissue. ? Transurethral needle ablation (TUNA). This procedure uses radio frequencies to destroy and remove a small amount of prostate tissue. ? Interstitial laser coagulation (ILC). This procedure uses a laser to destroy and remove a small amount of prostate tissue. ? Transurethral electrovaporization (TUVP). This procedure uses electrodes to destroy and remove a small amount of prostate tissue. ? Prostatic urethral lift. This procedure inserts an implant to push the lobes of the prostate away from the urethra. Follow these instructions at home: ? Take ziln-wmw-lcngahr and prescription medicines only as told by your health care provider. ? Monitor your symptoms for any changes. Contact your health care provider with any changes. ? Avoid drinking large amounts of liquid before going to bed or out in public. ? Avoid or reduce how much caffeine or alcohol you drink. ? Give yourself time when you urinate. ? Keep all follow-up visits. This is important. Contact a health care provider if: ? You have unexplained back pain. ? Your symptoms do not get better with treatment. ? You develop side effects from the medicine (more content not included)... Normal [facility] Urology Office/Clinic Noteon 11-06-2023 Urology Office/Clinic Note Chief Complaint BPH with urinary obstruction HPI Staff 2 month f/u to stopping Tamsulosin and starting Dutasteride. Dx: BPH with obstruction, gross hematuria, dysuria. Dysuria: pain in urethra when he voids Incomplete bladder emptying: no Hematuria: no Frequency: no Urgency: some once in a while Nocturia: 2x Stream: weak stream with straining Leaking: not leaking states it seems like he is holding his urine fine Post void dripping: yes Wearing pads/ Depends: no Urge incontinence: no Stress incontinence: no Incontinence without Sensory Awareness: no Abdominal pain: no Flank pain: no Sexual complaints: no History of Present Illness Tests reviewed: reviewed UA I have reviewed the previous health record information and history for this patient from Dr. Niño. I have reviewed and verified the staff HPI to be accurate for this encounter. Review of Systems PHQ Score Initial Depression Screen Score: 0 SCORE ROS - Provider Constitutional: denies weight loss, denies hot flashes. Eyes: denies eye problems. Gastrointestinal: denies nausea, denies vomiting. Cardiovascular: denies chest pain or angina. Integumentary: no dryness Musculoskeletal: denies musculoskeletal symptoms. ENMT: denies otolaryngeal symptoms. Respiratory: no shortness of breath. Heme/Lymph: denies easy bleeding tendency, denies easy bruising tendency. Psychiatric: no confusion, no anxiety. Genitourinary: See HPI. Physical Exam Vitals & Measurements T: 37 ?C(Temporal Artery) HR: 59(Peripheral) RR: 16 BP: 123/69 HT: 66 in HT: 168 cm WT: 69.2 kg WT: 152.24 lb BMI: 24.52 General Appearance: alert, no distress, well nourished, well developed male. Assessment/Plan 1. BPH with urinary obstruction (N40.1: Benign prostatic hyperplasia with lower urinary tract symptoms) S/p Cysto 06/27/23 - Obstructed, Friable prostate. Moderate bladder trabeculations. PSA 04/26/23 - 0.6. Stopped Tamsulosin 0.4 mg bid at prior OV due to SE of headaches. Start on Dutasteride 0.5mg qd. States he has not noticed any significant changes in urination. Admits he is able to hold urine better. Reports weak stream. [place] stream was better on Tamsulosin. Discussed Dutasteride does takes at least 3 months to take effect. -Cont Dutasteride wo changes. 2. Dysuria (R30.0: Dysuria) 05/22/23 - burning knife feeling with urination during hematuria episodes. 07/21/23 - called our office and reported he finished 12 days of doxycycline but was still having pain with urination. Pyridium was rx'd. [1] Pyridium improved sxs. Today pt continues to report pain/burning with urination. Discussed further abx may help alleviate sxs. -Take Bactrim DS bid x14 days then qd x1 month. Avoid sun exposure. 3. Gross hematuria (R31.0: Gross hematuria) Cytol 04/12/21 - neg S/p Cysto 04/20/21 - Tight urethra. Couple penial strictures noted, scope dilated them. Moderate bilobar hypertrophy, mild trabeculation, no b.t. or stones. CT 04/26/21 - neg for mass or stones 05/22/23 - Reported gross hematuria and visible blood at tip of his penis w/ occasional small clots x 4 episodes since the beginning of April. FISH/Cytol 05/18/23 - neg CTU 05/31/23 - No suspicious renal lesions. No hydro or nephrolithiasis. S/p Cysto 06/27/23 - Penile urethral stricture, scope was able to pass through it. Obstructed, Friable prostate. Moderate bladder trabeculations. No bladder tumors or stones. No erythematous mucosal lesions. No gross hematuria recurrence since 05/2023. [2] Follow-up With When Contact Information MUSTAPHA MCCAIN, Boubacar [place], URL [facility] [address] [place] [address]- [phone] Additional Instructions: 3 mos Patient Education Benign Prostatic Hyperplasia I, Brigitte Mcarthur, personally scribed for Dr. Niño on 11/06/2023 13:43:26. . Documentation recorded by the scribe, Brigitte Mcarthur, accurately reflects the services(s) I performed and decisions made by me. Authenticated by Dr. Niño on 11/06/2023 13:44:56. Problem List/Past Medical History Ongoing BPH with urinary obstruction Carpal tunnel syndrome CKD (chronic kidney disease), stage III Contact dermatitis Dysuria Gross hematuria Head injury Headache Tinnitus Historical arthritis fell off of roof Hypercholesterolemia Procedure/Surgical History Urodynamics (05/04/2021), Arthroscopy of shoulder (07/06/2017), bilateral carpal tunnel release, Cataracts, Colonoscopy, excision of heel spur, left total knee arthroplasty, Tracheostomy, tracheostomy closure. Medications aspirin 81 mg Oral EC Tab, 81 mg= 1 tab(s), Oral, Daily dutasteride 0.5 mg Cap, 0.5 mg= 1 cap(s), Oral, Daily, 11 refills Fish Oil, 1400 mg, Oral, Daily glucosamine 500 mg Cap, Oral, Daily Allergies Latex (Itching) statins (Hives) Social History Alcohol - Denies Alcohol Use, 07/12/2010 Substance Abuse - Denies Substance Abuse, 07/12/2010 To (more content not included)... Normal [facility] Comment on above: Result Comment: Elec tronically Signed By: Boubacar NIÑO MD\.br\Date and Time Signed: 11/06/23 13:45 EDT\.br\Electronically Co-Signed By: Brigitte Mcarthur\.br\Date and Time Co-Signed: 11/06/23 13:43 EDT Family Medicine Office/Clini c Noteon 10-26-2023 Family Medicine Office/Clinic Note HPI Staff Steve is a 78 year old male presenting for 6 month follow up CKD Last Labs: 04/26/23 questions/concerns: none History of Present Illness - See staff HPI. - Numbness in the R hand. Numbness at night. - Had surgery, but still having intermittent issues. Review of Systems PHQ Score Initial Depression Screen Score: 0 SCORE Physical Exam Vitals & Measurements T: 36.4 ?C(Oral) HR: 66(Peripheral) RR: 16 BP: 118/66 SpO2: 97% HT: 66 in HT: 168 cm WT: 68.3 kg WT: 150.26 lb BMI: 24.2 General: alert, no acute distress ENMT: oral mucosa moist, Cardiovascular: regular rate and rhythm, normal peripheral perfusion Respiratory: Lungs CTA, respirations non labored Extremities: no deformity, no trauma, Lump on the back of B/L hands. Good movement on all fingers. Neurological: oriented x 4, LOC appropriate for age, CN II-XII intact, motor strength equal & normal bilaterally, speech normal Abdomen: Soft, Nontender, Non-distended, + BS Assessment/Plan 1. CKD (chronic kidney disease), stage III (N18.30: Chronic kidney disease, stage 3 unspecified) - Stable. - Follow up in 1 month Ordered: Body Mass Index (BMI) documented 3008F Current tobacco non-user 1036F Depression Screening Negative 3352F Most recent diastolic blood pressure <80 mm Hg 3078F Patient screen for fall risk: no falls in last year or 1 fall with no injury in last year 1101F Systolic BP <130 mm Hg (Most Recent) 3074F 2. Contact dermatitis (L25.9: Unspecified contact dermatitis, unspecified cause) - Pt to follow up with Derm. - Meds not working. - Pt to call Derm 3. Carpal tunnel syndrome (G56.00: Carpal tunnel syndrome, unspecified upper limb) - Pt to get braces. - Follow up PRN 4. Nonsmoker (Z78.9: Other specified health status) - Please continue to not smoke. Ordered: Body Mass Index (BMI) documented 3008F Current tobacco non-user 1036F Depression Screening Negative 3352F Most recent diastolic blood pressure <80 mm Hg 3078F Patient screen for fall risk: no falls in last year or 1 fall with no injury in last year 1101F Systolic BP <130 mm Hg (Most Recent) 3074F Follow-up No qualifying data available Problem List/Past Medical History Ongoing BPH with urinary obstruction Carpal tunnel syndrome CKD (chronic kidney disease), stage III Contact dermatitis Dysuria Gross hematuria Head injury Headache Tinnitus Historical arthritis fell off of roof Hypercholesterolemia Procedure/Surgical History Urodynamics (05/04/2021), Arthroscopy of shoulder (07/06/2017), bilateral carpal tunnel release, Cataracts, Colonoscopy, excision of heel spur, left total knee arthroplasty, Tracheostomy, tracheostomy closure. Medications aspirin 81 mg Oral EC Tab, 81 mg= 1 tab(s), Oral, Daily dutasteride 0.5 mg Cap, 0.5 mg= 1 cap(s), Oral, Daily, 11 refills Fish Oil, 1400 mg, Oral, Daily glucosamine 500 mg Cap, Oral, Daily Allergies Latex (Itching) statins (Hives) Social History Alcohol - Denies Alcohol Use, 07/12/2010 Substance Abuse - Denies Substance Abuse, 07/12/2010 Tobacco - Denies Tobacco Use, 07/12/2010 Never (less than 100 in lifetime) Tobacco Use:. Never Smokeless Tobacco Use:. Household tobacco concerns: No., 10/26/2023 Family History Acute myocardial infarction: Mother. COPD: Sister. Immunizations Vaccine Date Status SARS-CoV-2 (COVID-19) mRNA BNT-162b2 vax 08/04/2020 Recorded SARS-CoV-2 (COVID-19) mRNA BNT-162b2 vax 07/13/[address] [facility] Comment on above: Result Comment: Elec tronically Signed By: Pk Muse MD\.br\Date and Time Signed: 10/26/23 13:40 EDT Ambulatory Visit Summaryon 0 09-11-2023 Ambulatory Visit Summary JUNIOR Chasidy CHAUDHRY :1945 Visit Date:09/11/2023 Ambulatory Visit Instructions Your Diagnosis BPH with urinary obstruction Gross hematuria Dysuria Your Care Team Attending Physician - Boubacar NIÑO MD Primary Care Physician - Pk Muse MD Referring Physician - Boubacar NIÑO MD This Is Your Medications List tamsulosin (tamsulosin 0.4 mg Cap) Contact prescribing physician if questions or concerns aspirin (aspirin 81 mg Oral EC Tab) glucosamine (glucosamine 500 mg Cap) omega-3 polyunsaturated fatty acids (Fish Oil) Procedures Performed Urodynamics (05/04/2021), Arthroscopy of shoulder (07/06/2017), bilateral carpal tunnel release, Cataracts, Colonoscopy, excision of heel spur, left total knee arthroplasty, Tracheostomy, tracheostomy closure. Discharge Vitals Temperature (Temporal Artery) 36.9 ?C Heart Rate (Peripheral) 60 Respiratory Rate 16 Blood Pressure 125/63 Height 168 cm Height 66 in Weight 69 kg Weight 151.8 lb BMI 24.45 What to do next Scheduled Follow-Up Appointments 2023 1:00 PM EDT With: Pk Muse MD Where: [facility] [place] [address] [place] [address] [place] [address]- \.br\ You Need to Schedule the Following Appointments\.br\ Follow Up with Boubacar NIÑO MD, URL When: \.br\ Where:\.br\ [facility] [address]\.br\ [place] [address]-\.br\ [phone]\.br\ Medications\.br\ What How Much When Instructions\.br\ Unchanged tamsulosin (tamsulosin 0.4 mg Cap) 1 Capsules By Mouth 2 times a day Duration: 30 Days\.br\ Unchanged aspirin (aspirin 81 mg Oral EC Tab) 1 Tablets By Mouth Every day Contact prescribing physician if questions or concerns \.br\ Unchanged glucosamine (glucosamine 500 mg Cap) By Mouth Every day Contact prescribing physician if questions or concerns \.br\ Unchanged omega-3 polyunsaturated fatty acids (Fish Oil) 1,400 Milligram By Mouth Every day Contact prescribing physician if questions or concerns \.br\ Allergies\.br\ Latex (Itching)\.br\ statins (Hives)\.br\ Problems\.br\ Ongoing - Any problem that you are currently receiving treatment for.\.br\ BPH with urinary obstruction\.br\ CKD (chronic kidney disease), stage III\.br\ Contact dermatitis\.br\ Dysuria\.br\ Gross hematuria\.br\ Head injury\.br\ Headache\.br\ Tinnitus\.br\ Historical - Any problem that you are no longer receiving treatment for.\.br\ arthritis\.br\ fell off of roof\.br\ Hypercholesterolemia\ .br\ Patient Survey\.br\ You may receive a survey via text or e-mail asking about your office visit. Please share your experience with us by completing your survey. We appreciate your feedback and thank you for choosing us for your care.\.br\ \.br\ [facility] Patient Educationon 09-11-19 Patient Education Urology Benign Prostatic Hyperplasia Benign prostatic hyperplasia (BPH) is an enlarged prostate gland that is caused by the normal aging process. The prostate may get bigger as a man gets older. The condition is not caused by cancer. The prostate is a walnut-sized gland that is involved in the production of semen. It is located in front of the rectum and below the bladder. The bladder stores urine. The urethra carries stored urine out of the body. An enlarged prostate can press on the urethra. This can make it harder to pass urine. The buildup of urine in the bladder can cause infection. Back pressure and infection may progress to bladder damage and kidney (renal) failure. What are the causes? This condition is part of the normal aging process. However, not all men develop problems from this condition. If the prostate enlarges away from the urethra, urine flow will not be blocked. If it enlarges toward the urethra and compresses it, there will be problems passing urine. What increases the risk? This condition is more likely to develop in men older than 50 years. What are the signs or symptoms? Symptoms of this condition include: ? Getting up often during the night to urinate. ? Needing to urinate frequently during the day. ? Difficulty starting urine flow. ? Decrease in size and strength of your urine stream. ? Leaking (dribbling) after urinating. ? Inability to pass urine. This needs immediate treatment. ? Inability to completely empty your bladder. ? Pain when you pass urine. This is more common if there is also an infection. ? Urinary tract infection (UTI). How is this diagnosed? This condition is diagnosed based on your medical history, a physical exam, and your symptoms. Tests will also be done, such as: ? A post-void bladder scan. This measures any amount of urine that may remain in your bladder after you finish urinating. ? A digital rectal exam. In a rectal exam, your health care provider checks your prostate by putting a lubricated, gloved finger into your rectum to feel the back of your prostate gland. This exam detects the size of your gland and any abnormal lumps or growths. ? An exam of your urine (urinalysis). ? A prostate specific antigen (PSA) screening. This is a blood test used to screen for prostate cancer. ? An ultrasound. This test uses sound waves to electronically produce a picture of your prostate gland. Your health care provider may refer you to a specialist in kidney and prostate diseases (urologist). How is this treated? Once symptoms begin, your health care provider will monitor your condition (active surveillance or watchful waiting). Treatment for this condition will depend on the severity of your condition. Treatment may include: ? Observation and yearly exams. This may be the only treatment needed if your condition and symptoms are mild. ? Medicines to relieve your symptoms, including: ? Medicines to shrink the prostate. ? Medicines to relax the muscle of the prostate. ? Surgery in severe cases. Surgery may include: ? Prostatectomy. In this procedure, the prostate tissue is removed completely through an open incision or with a laparoscope or robotics. ? Transurethral resection of the prostate (TURP). In this procedure, a tool is inserted through the opening at the tip of the penis (urethra). It is used to cut away tissue of the inner core of the prostate. The pieces are removed through the same opening of the penis. This removes the blockage. ? Transurethral incision (TUIP). In this procedure, small cuts are made in the prostate. This lessens the prostate's pressure on the urethra. ? Transurethral microwave thermotherapy (TUMT). This procedure uses microwaves to create heat. The heat destroys and removes a small amount of prostate tissue. ? Transurethral needle ablation (TUNA). This procedure uses radio frequencies to destroy and remove a small amount of prostate tissue. ? Interstitial laser coagulation (ILC). This procedure uses a laser to destroy and remove a small amount of prostate tissue. ? Transurethral electrovaporization (TUVP). This procedure uses electrodes to destroy and remove a small amount of prostate tissue. ? Prostatic urethral lift. This procedure inserts an implant to push the lobes of the prostate away from the urethra. Follow these instructions at home: ? Take grij-gso-krgbrsa and prescription medicines only as told by your health care provider. ? Monitor your symptoms for any changes. Contact your health care provider with any changes. ? Avoid drinking large amounts of liquid before going to bed or out in public. ? Avoid or reduce how much caffeine or alcohol you drink. ? Give yourself time when you urinate. ? Keep all follow-up visits. This is important. Contact a health care provider if: ? You have unexplained back pain. ? Your symptoms do not get better with treatment. ? You develop side effects from the medicine (more content not included)... Normal [facility] Urology Office/Clinic Noteon 09-11-2023 Urology Office/Clinic Note Chief Complaint gross hematuria HPI Staff 2 month f/u to CT Urogram and hematuria work up. Dx: gross hematuria and BPH with urinary obstruction Tamsulosin 0.4mg BID Dysuria: pt states that he has a pain that feels like he is being cut in his urethra when he has to void Incomplete bladder emptying: no Hematuria: no Frequency: no Urgency: some every now and then Nocturia: 2x Stream: states that during the day seem good but when he has to get up in the middle of the night it seems much weaker Leaking: only if waits too long Post void dripping: yes Wearing pads/ Depends: no Urge incontinence: no Stress incontinence: no Incontinence without Sensory Awareness: no Abdominal pain: no Flank pain: states he has back pain from arthritis Sexual complaints: no History of Present Illness Tests reviewed: reviewed UA I have reviewed the previous health record information and history for this patient from Dr. Niño and Deanna Guzman NP. I have reviewed and verified the staff HPI to be accurate for this encounter. Review of Systems PHQ Score Initial Depression Screen Score: 0 SCORE ROS - Provider Constitutional: denies weight loss, denies hot flashes. Eyes: denies eye problems. Gastrointestinal: denies nausea, denies vomiting. Cardiovascular: denies chest pain or angina. Integumentary: no dryness Musculoskeletal: denies musculoskeletal symptoms. ENMT: denies otolaryngeal symptoms. Respiratory: no shortness of breath. Heme/Lymph: denies easy bleeding tendency, denies easy bruising tendency. Psychiatric: no confusion, no anxiety. Genitourinary: See HPI. Physical Exam Vitals & Measurements T: 36.9 ?C(Temporal Artery) HR: 60(Peripheral) RR: 16 BP: 125/63 HT: 66 in HT: 168 cm WT: 69 kg WT: 151.8 lb BMI: 24.45 General Appearance: alert, no distress, well nourished, well developed male. Genitourinary: normal scrotum, normal testes, normal urethra, normal epididymis, normal vas deferens/spermatic cord. Flank Pain: none. Bladder: nonpalpable. Assessment/Plan 1. BPH with urinary obstruction (N40.1: Benign prostatic hyperplasia with lower urinary tract symptoms) S/p Cysto 06/27/23 - Obstructed, Friable prostate. Moderate bladder trabeculations. PSA 04/26/23 - 0.6. Taking Tamsulosin 0.4 mg bid. Reports headaches, feels this is related to Tamsulosin. Has to strain to void in the mornings. Does not feel he empties. -D/c Tamsulosin -Start Dutasteride 0.5mg qd. Discussed the medication side effects, and the patient will monitor closely for these, as well as for symptom improvement. If severe side effects occur, the medication should be stopped and the office notified. 2. Gross hematuria (R31.0: Gross hematuria) Cytol 04/12/21 - neg S/p Cysto 04/20/21 - Tight urethra. Couple penial strictures noted, scope dilated them. Moderate bilobar hypertrophy, mild trabeculation, no b.t. or stones. CT 04/26/21 - neg for mass or stones 05/22/23 - Reported gross hematuria and visible blood at tip of his penis w/ occasional small clots x 4 episodes since the beginning of April. FISH/Cytol 05/18/23 - neg CTU 05/31/23 - No suspicious renal lesions. No hydro or nephrolithiasis. S/p Cysto 06/27/23 - Penile urethral stricture, scope was able to pass through it. Obstructed, Friable prostate. Moderate bladder trabeculations. No bladder tumors or stones. No erythematous mucosal lesions. No gross hematuria recurrence since 05/2023. 3. Dysuria (R30.0: Dysuria) 05/22/23 - burning knife feeling with urination during hematuria episodes. 07/21/23 - called our office and reported he finished 12 days of doxycycline but was still having pain with urination. Pyridium was rx'd. States burning improved with Pyridium. UA today negative for blood and infection. Follow-up With When Contact Information MUSTAPHA MCCAIN, LEILA Almendarez [facility] [address], [place] [phone] Additional Instructions: 3 mos (new med) Patient Education Benign Prostatic Hyperplasia I, Brigitte Mcarthur, personally scribed for Dr. Niño on 09/11/2023 15:05:50. . Documentation recorded by the scribeBrigitte, accurately reflects the services(s) I performed and decisions made by me. Authenticated by Dr. Niño on 09/11/2023 15:07:15. Problem List/Past Medical History Ongoing BPH with urinary obstruction CKD (chronic kidney disease), stage III Contact dermatitis Dysuria Gross hematuria Head injury Headache Tinnitus Historical arthritis fell off of roof Hypercholesterolemia Procedure/Surgical History Urodynamics (05/04/2021), Arthroscopy of shoulder (07/06/2017), bilateral carpal tunnel release, Cataracts, Colonoscopy, excision of heel spur, left total knee arthroplasty, Tracheostomy, tracheostomy closure. Medications aspirin 81 mg Oral EC Tab, 81 mg= 1 tab(s), Oral, Daily dutasteride 0.5 mg Cap, 0.5 mg= 1 cap(s), Oral, Daily, 11 r (more content not included)... Normal [facility] Comment on above: Result Comment: Elec tronically Signed By: Boubacar NIÑO MD\.br\Date and Time Signed: 09/11/23 15:07 EDT\.br\Electronically Co-Signed By: Brigitte Mcarthur\.br\Date and Time Co-Signed: 09/11/23 15:06 EDT CHEMISTRYOrdered By: SYSTEM SYSTEM on 05-31-2023 Creatinine [Mass/Vol] 1.4 mg/dL High 0.5 - 1.3 mg/dL Remisol Chem eGFR 51 mL/min/1.73 m2 Low >=59mL/min/1.73 m2 Remisol Chem Covid-19 PCR ([facility])on 06-16 SARS-CoV-2 (COVID-19) RNA TREVER+probe Ql (Unsp spec) Not detected Normal NOT DETECTED [facility] Comment on above: Result Comment: When diagnostic testing is negative, the possibility of a false negative should be considered in the context of a patient's recent exposures and the presence of clinical signs and symptoms consistent with SARS-CoV-2. This test is not yet approved or cleared by the [place] FDA. When there are no FDA-approved or cleared tests available, and other criteria are met, FDA can make tests available under an emergency access mechanism called an Emergency Use Authorization (EUA). The EUA for this test is supported by the [place] of Health and Human Service's declaration that circumstances exist to justify the emergency use of in vitro diagnostics for the detection and/or diagnosis of the virus that causes COVID-19. This EUA will remain in effect for the duration of the COVID-19 declaration justifying emergency of IVDs, unless it is terminated or revoked by the FDA (after which the test may no longer be used). Performed By: #### C [facility] ####[facility] [address] [place], [place] [address]ZtFiona Kimberleyragini Mann INFLUENZA A AND B AGon 07-06 INFLUANEGH SEE BELOW Normal [facility] Comment on above: Result Comment: Nega tive for Flu A protein angiten. Infection due to Flu A cannot be ruled out. Flu A angiten in the sample may be below the detection limit of the test. Performed By: #### I NFLUAB ####[facility] [address] [place] [address]Dr. Danna Mann INFLUBNEGH SEE BELOW Normal [facility] Comment on above: Result Comment: Nega tive for Flu B protein antigen. Infection due to Flu B cannot be ruled out. Flu B antigen in the sample may be below the detection limit of the test. Performed By: #### I NFLUAB ####[facility] [address] [place] [address]Dr. Danna Mann INFLUENZA A AG Negative Normal NEGATIVE SEE COMMENT [facility] Comment on above: Performed By: #### I NFLUAB ####[facility] [address] [place] [address]Dr. Danna Mann INFLUENZA B AG Negative Normal NEGATIVE SEE COMMENT [facility] Comment on above: Performed By: #### I NFLUAB ####[facility] [address] [place], [place] [address]Dr. Danna Mann ECHOCARDIO M/2D COMPLETEon 1 ECHOCARDIO M/2D COMPLETE Patient: JUNIOR Chasidy CHAUDHRY. Exam Date: 03/04/2022 : 1945 Gender:M Ordering : DR TRISTAN PITTMAN . Admission #: [id number] Family : Order #: [id number] CLICK HERE TO VIEW EXAM ECHOCARDIOGRAM REPORT PROCEDURE: CARDIO PULMONARY ECHOCARDIO M/2D COMP INDICATIONS: Chest pain, dyspnea COMPARISON: None. DESCRIPTION: COMPLETE ECHOCARDIOGRAM Real-time transthoracic echocardiography with 2D, M-mode, spectral and color flow Doppler performed. QUALITY: Technical quality was good. 65 152# BP 138/72 LEFT VENTRICLE: Normal chamber size. Normal left ventricular wall thickness. Systolic function is at the lower limits of normal. LV EF: Left ventricular ejection fraction is at the lower limits of normal, (50%). DIASTOLIC: Normal diastolic function. ATRIAL SEPTUM: Visually appears intact. LEFT ATRIUM: Normal chamber size. RIGHT ATRIUM: Normal chamber size. RIGHT VENTRICLE: Normal chamber size. Normal right ventricular systolic function. TRICUSPID VALVE: Normal mobility and thickness. No stenosis with mild regurgitation. No evidence of pulmonary hypertension. RVSP 30 mmHg MITRAL VALVE: Normal mobility and thickness. No evidence of mitral valve stenosis. There is no mitral annular calcification. Trivial mitral regurgitation. AORTIC VALVE: Normal trileaflet appearance. No visible sclerosis. Normal leaflet mobility. No evidence of aortic valve stenosis. No aortic regurgitation. AORTIC ROOT: Normal diameter and appearance. PULMONIC VALVE: Normal thickness and mobility. No stenosis. No regurgitation. PERICARDIUM: No evidence of pericardial effusion. IVC: Collapses with inspirations. IVC is normal in size. PLEURA: CONCLUSION: 1. Left ventricular systolic function is at the lower limits of normal. LVEF is 50%. 2. Normal right ventricular size and systolic function. 3. No significant valvular dysfunction. 4. Normal right-sided pressures. 5. No pericardial effusion. Adult Echocardiography Procedure Report Left Ventricle LVEDD (3.7 - 5.6 cm): 3.63 cm LVESD (2.2 - 4.0 cm): 2.58 cm LVIVS thickness (0.6 - 1.2 cm): 0.84 cm LVPW thickness (0.5 - 1.0 cm): 0.94 cm e': 0.15 m/s E - e': 4.26 LVOT Max Gradient: 2.93 mm[Hg] Peak Velocity (LVOT): 0.86 m/s Mean Velocity (LVOT): 0.63 m/s LVOT Diameter 2.15 cm Left Ventricular Ejection Fraction: 50% Left Atrium LA Volume Index (2D A2C): 48.11 ml, 48.11 ml Left Atrium Systolic Dimension: 3.06 cm Mitral Valve MV E to A Ratio: 0.93 Mitral Valve A-Wave Peak Velocity: 0.68 m/s Mitral Valve E-Wave Peak Velocity: 0.63 m/s Right Ventricle Aorta AO Root Diam: 3.27 cm Aortic Valve AoV Area (Peak Marlon): 2.73 cm2, 2.73 cm2 Peak Velocity(Antegrade Flow): 1.14 m/s Peak Gradient(Antegrade Flow): 5.19 mm[Hg] Tricuspid Valve Peak Velocity (Regurgitant Flow): 2.59 m/s, 2.40 m/s, 2.09 m/s Peak Velocity: 0.44 m/s Pulmonic Valve Peak Velocity: 1.24 m/s, 1.16 m/s Peak Gradient: 6.15 mm[Hg], 5.39 mm[Hg] Right Atrium Right Atrium Systolic Pressure: 38.78 ml, 38.78 ml Dictated by: Heber Delacruz M.D. on 03/07/2022 at 18:38 Approved by: Heber Delacruz M.D. on 03/07/2022 at 18:41 Normal [facility] BNPon 02-17-2022 Natriuretic peptide B (Bld) [Mass/Vol] 307.0 pg/mL Normal <=1,800.0 [facility] Comment on above: Performed By: #### B SANITARIAN INSPECTOR, CMP, CMADM ####[facility] [address] [place] [address]Dr. Danna Mann CARDIAC ROSITA ADMITon 022 CK [Catalytic activity/Vol] 222 U/L Normal 39-308 [facility] Comment on above: Performed By: #### B SANITARIAN INSPECTOR, CMP, CMADM ####[facility] [address] [place] [address]Dr. Danna Mann CK.MB [Mass/Vol] 6.78 ng/mL Critically high <=3.60 [facility] Comment on above: Performed By: #### B SANITARIAN INSPECTOR, CMP, CMADM ####[facility] [address] [place] [address]Dr. Danna Mann HSTROP 10.6 pg/mL Normal 4.0-76.1 [facility] Comment on above: Result Comment: CUT- OFF POINTS HAVE BEEN ESTABLISHED BASED ON THE FOURTH UNIVERSAL DEFINITIONS OF MYOCARDIAL INFARCTION. THE UPPER REFERENCE LIMIT (URL) OF TROPONIN, DEFINED THE 99TH PERCENTILE OF cTnI DISTRIBUTION IN A REFERENCE POPULATION, HAS BEEN CONFIRMED THE DECISION THRESHOLD FOR KS DIAGNOSIS. Performed By: #### B SANITARIAN INSPECTOR, CMP, CMADM ####[facility] [address] [place] [address]Dr. Danna Mann HOMERO 150 ng/mL Critically high 16-96 [facility] Comment on above: Performed By: #### B SANITARIAN INSPECTOR, CMP, CMADM ####[facility] [address] [place] [address]Dr. Danna Mann CBC AUTO DIFFon 02-17-2022 BASO # 0.0 103/ul Normal 0.0-0.1 [facility] Comment on above: Performed By: #### C BC ####[facility] [address] [place] [address]Dr. Danna Mann Basophils/100 WBC (Bld) 0.7 % Normal 0.2-2.0 [facility] Comment on above: Performed By: #### C BC ####[facility] [address] [place], [place] [address]DrFiona Mann EO # 0.4 103/ul Normal 0.0-0.7 [facility] Comment on above: Performed By: #### C BC ####[facility] [address] [place], [place] [address]Dr. Danna Mann Eosinophils/100 WBC (Bld) 7.1 % Critically high 0.9-7.0 [facility] Comment on above: Performed By: #### C BC ####[facility] [address] [place], [place] [address]Dr. Danna Mann Erythrocyte distribution width (RBC) [Ratio] 12.2 % Normal 11.0-15.0 [facility] Comment on above: Performed By: #### C BC ####[facility] [address] [place], [place] [address]Dr. Danna Mann Hematocrit (Bld) [Volume fraction] 36.8 % Critically low 42.0-54.0 [facility] Comment on above: Performed By: #### C BC ####[facility] [address] [place], [place] [address]Dr. Danna Mann Hemoglobin (Bld) [Mass/Vol] 12.8 g/dL Critically low 14.0-18.0 [facility] Comment on above: Performed By: #### C BC ####[facility] [address] [place], [place] [address]DrFiona Mann IG # 0.01 10e3/ul Normal 0.00-0.03 [facility] Comment on above: Performed By: #### C BC ####[facility] [address] [place], [place] [address]Dr. Danna Mann IG % 0.2 % Normal 0.0-0.5 [facility] Comment on above: Performed By: #### C BC ####[facility] [address] [place] [address]DrFiona Mann LYMPH # 1.5 103/ul Normal 1.2-3.8 [facility] Comment on above: Performed By: #### C BC ####[facility] [address] [place] [address]DrFiona Mann Lymphocytes/100 WBC (Bld) 25.6 % Normal 20.5-60.0 [facility] Comment on above: Performed By: #### C BC ####[facility] [address] [place], [place] [address]DrFiona Mann MANUAL DIFF REQ NO Normal [facility] Comment on above: Performed By: #### C BC ####[facility] [address] [place], [place] [address]DrFiona Mann MCH (RBC) [Entitic mass] 31.2 pg Normal 25.9-34.0 [facility] Comment on above: Performed By: #### C BC ####[facility] [address] [place], [place] [address]DrFiona Mann MCHC (RBC) [Mass/Vol] 34.8 g/dL Normal 29.9-35.2 [facility] Comment on above: Performed By: #### C BC ####[facility] [address] [place], [place] [address]DrFiona Mann MCV (RBC) [Entitic vol] 89.8 fL Normal 80.0-94.0 [facility] Comment on above: Performed By: #### C BC ####[facility] [address] [place], [place] [address]DrFiona Mann MONO # 0.7 103/ul Normal 0.3-0.8 [facility] Comment on above: Performed By: #### C BC ####[facility] [address] [place], [place] [address]DrFiona Mann Monocytes/100 WBC (Bld) 12.7 % Critically high 1.7-12.0 [facility] Comment on above: Performed By: #### C BC ####[facility] [address] [place] [address]Dr. Danna Mann NEUT # 3.1 103/ul Normal 1.4-6.5 [facility] Comment on above: Performed By: #### C BC ####[facility] [address] [place] [address]Dr. Danna Mann Neutrophils/100 WBC (Bld) 53.7 % Normal 43.0-75.0 [facility] Comment on above: Performed By: #### C BC ####[facility] [address] [place], [place] [address]Dr. Danna Mann Platelet mean volume (Bld) [Entitic vol] 10.5 fL Normal 9.5-13.5 [facility] Comment on above: Performed By: #### C BC ####[facility] [address] [place] [id number]. Danna Mann PLT 203 103/ul Normal 150-450 [facility] Comment on above: Performed By: #### C BC ####[facility] [address] [place], [place] [address]Dr. Danna Mann RBC 4.10 106/ul Critically low 4.70-6.10 [facility] Comment on above: Performed By: #### C BC ####[facility] [address] [place], [place] [address]Dr. Danna Mann WBC 5.7 103/ul Normal 4.0-11.0 [facility] Comment on above: Performed By: #### C BC ####[facility] [address] [place], [place] [address]Dr. Danna Mann CTA CHEST WO W CONon 022 CTA CHEST WO W CON EXAMINATION: CTA CHEST WO W CON HISTORY: SHORTNESS OF BREATH COMPARISON: 04/26/2021. TECHNIQUE: CT angiography of the pulmonary arteries following the administration of intravenous contrast. Coronal and sagittal MIP (maximum intensity projection) images were performed. Dose reduction techniques were achieved by using automated exposure control and/or adjustment of mA and/or kV according to patient size and/or use of iterative reconstruction technique. FINDINGS: High Pressure Kettle Operator: No pertinent findings, which are not already discussed below. Tubes, devices, and lines: None. Pulmonary arteries: Adequate opacification of the pulmonary arteries to the segmental level. No filling defects in the pulmonary arteries to suggest pulmonary embolus. Main pulmonary artery measures 20 mm in diameter. No reflux of contrast into the hepatic veins or septal bowing. Lungs/Pleura/Airways: No consolidation, pulmonary nodule or evidence of interstitial lung disease. No pleural effusion or pneumothorax. Clear central airways. Heart and Mediastinum: Normal cardiac chambers. No significant pericardial effusion. Mildly enlarged right hilar lymph node measuring 1.1 cm. A few additional prominent bilateral subcentimeter lymph nodes are present. No mediastinal lymphadenopathy. Dense multivessel left coronary artery calcifications.. Visualized thyroid is unremarkable. Lower neck: Unremarkable. Upper Abdomen: Unremarkable. Soft tissues: Normal. Bones: No concerning lytic or blastic osseous lesions. Degenerative changes of the spine. SUMMARY: 1. No pulmonary embolism or acute pulmonary process. 2. Mild hilar adenopathy. Consider follow-up to resolution. Electronically authenticated by: DENICE HUANG Date: 2022-02-17 18:00 Normal [facility] Covid-19 PCR (CVDTB)on SARS-CoV-2 (COVID-19) RNA TREVER+probe Ql (Unsp spec) Not detected Normal NOT DETECTED [facility] Comment on above: Result Comment: When diagnostic testing is negative, the possibility of a false negative should be considered in the context of a patient's recent exposures and the presence of clinical signs and symptoms consistent with SARS-CoV-2. This test is not yet approved or cleared by the [place] FDA. When there are no FDA-approved or cleared tests available, and other criteria are met, FDA can make tests available under an emergency access mechanism called an Emergency Use Authorization (EUA). The EUA for this test is supported by the [place] of Health and Human Service's declaration that circumstances exist to justify the emergency use of in vitro diagnostics for the detection and/or diagnosis of the virus that causes COVID-19. This EUA will remain in effect for the duration of the COVID-19 declaration justifying emergency of IVDs, unless it is terminated or revoked by the FDA (after which the test may no longer be used). Performed By: #### C VDTBH #### [facility] [address] [address] [address] Danna Mann D-DIMERon 02-17-2022 D-DIMER 2.16 mg/L FEU Critically high <=0.59 [facility] Comment on above: Performed By: #### P TT, DDIM, PT ####[facility] [address] [id number] Mann D-DIMER COMMENTS SEE BELOW Normal [facility] Comment on above: Result Comment: Incr eases in D-Dimer concentration observed with thromboembolic events can be variable due to localization, size, and age of the thrombus. Therefore, a thromboembolic event cannot be diagnosed with certainty on the basis of the reference range. D-Dimers may also be elevated for a variety of disorders including: advanced age, , coronary disease, cancer, liver disease, infection, inflammation, hematoma, DIC, trauma, post-surgery, diabetes, thrombolytic or anticoagulant therapy, stress, and generalized hospitalization. Performed By: #### P TT, DDIM, PT ####[facility] [address] [address]DrFiona Mann PROF 14(COMP METB)on 022 Albumin [Mass/Vol] 3.4 g/dL Normal 3.4-5.0 [facility] Comment on above: Performed By: #### B SANITARIAN INSPECTOR, CMP, CMADM ####[facility] [address] [id number] Mann Albumin/Globulin [Mass ratio] 1.0 {ratio} Normal [facility] Comment on above: Performed By: #### B SANITARIAN INSPECTOR, CMP, CMADM ####[facility] [address] [id number] Mann ALP [Catalytic activity/Vol] 84 U/L Normal 46-116 [facility] Comment on above: Performed By: #### B SANITARIAN INSPECTOR, CMP, CMADM ####[facility] [address] [id number] Mann ALT [Catalytic activity/Vol] 28 U/L Normal 16-63 [facility] Comment on above: Performed By: #### B SANITARIAN INSPECTOR, CMP, CMADM ####[facility] [address] [address]Dr. Danna Mann Anion gap [Moles/Vol] 10.2 mmol/L Normal [facility] Comment on above: Performed By: #### B SANITARIAN INSPECTOR, CMP, CMADM ####[facility] [address] [address]Dr. Danna Mann AST [Catalytic activity/Vol] 20 U/L Normal 15-37 [facility] Comment on above: Performed By: #### B SANITARIAN INSPECTOR, CMP, CMADM ####[facility] [address] [address]Dr. Danna Mnan Bilirubin [Mass/Vol] 0.4 mg/dL Normal 0.2-1.0 [facility] Comment on above: Performed By: #### B SANITARIAN INSPECTOR, CMP, CMADM ####[facility] [address] [address]Dr. Danna Mann Calcium [Mass/Vol] 8.6 mg/dL Normal 8.5-10.1 [facility] Comment on above: Performed By: #### B SANITARIAN INSPECTOR, CMP, CMADM ####[facility] [address] [address]Dr. Danna Mann Chloride [Moles/Vol] 106 mmol/L Normal 98-107 [facility] Comment on above: Performed By: #### B SANITARIAN INSPECTOR, CMP, CMADM ####[facility] [address] [address]Dr. Danna Mann CO2 [Moles/Vol] 26.2 mmol/L Normal 21.0-32.0 [facility] Comment on above: Performed By: #### B SANITARIAN INSPECTOR, CMP, CMADM ####[facility] [address] [address]Dr. Danna Mann Creatinine [Mass/Vol] 1.54 mg/dL Critically high 0.70-1.30 [facility] Comment on above: Performed By: #### B SANITARIAN INSPECTOR, CMP, CMADM ####[facility] [address] [address]Dr. Danna Mann EGFR-AF MALAYSIAN 53 mL/min/1.73m2 Critically low >=60 [facility] Comment on above: Performed By: #### B SANITARIAN INSPECTOR, CMP, CMADM ####[facility] [address] [address]Dr. Danna Mann EGFR-NON AF MALAYSIAN 44 mL/min/1.73m2 Critically low >=60 [facility] Comment on above: Performed By: #### B SANITARIAN INSPECTOR, CMP, CMADM ####[facility] [address] [address]Dr. Danna Mann Globulin (S) [Mass/Vol] 3.4 g/dL Normal [facility] Comment on above: Performed By: #### B SANITARIAN INSPECTOR, CMP, CMADM ####[facility] [address] [place], [place] [address]Dr. Kimberleyragini Mann Glucose [Mass/Vol] 132 mg/dL Critically high 74-106 [facility] Comment on above: Performed By: #### B SANITARIAN INSPECTOR, CMP, CMADM ####[facility] [address] [place], [place] [address]Dr. Danna Mann Potassium [Moles/Vol] 4.4 mmol/L Normal 3.5-5.1 [facility] Comment on above: Performed By: #### B SANITARIAN INSPECTOR, CMP, CMADM ####[facility] [address] [place], [place] [address]Dr. Danna Mann Protein [Mass/Vol] 6.8 g/dL Normal 6.4-8.2 [facility] Comment on above: Performed By: #### B SANITARIAN INSPECTOR, CMP, CMADM ####[facility] [address] [place], [place] [address]Dr. Danna Mann Sodium [Moles/Vol] 138 mmol/L Normal 136-145 [facility] Comment on above: Performed By: #### B SANITARIAN INSPECTOR, CMP, CMADM ####[facility] [address] [place], [place] [address]Dr. Danna Mann Urea nitrogen [Mass/Vol] 34.0 mg/dL Critically high 7.0-18.0 [facility] Comment on above: Performed By: #### B SANITARIAN INSPECTOR, CMP, CMADM ####[facility] [address] [address]Dr. Danna Mann Urea nitrogen/Creatinin e [Mass ratio] 22.1 mg/mg Normal [facility] Comment on above: Performed By: #### B SANITARIAN INSPECTOR, CMP, CMADM ####[facility] [address] [id number]. Danna Mann PROTIMEon 02-17-2022 INR Coag (PPP) [Relative time] 0.96 {INR} Normal [facility] Comment on above: Performed By: #### P TT, DDIM, PT #### [facility] [address] [place] [address] Dr. Danna Mann INR GUIDELINES SEE BELOW Normal [facility] Comment on above: Result Comment: CAMILLE RED INR: 2.0 - 3.0 CONDITIONS NOT LISTED BELOW 2.5 - 3.5 FOR PROSTHETIC HEART VALVE REPLACEMENT 2.5 - 3.5 RECURRENT THROMBOSIS Performed By: #### P TT, DDIM, PT #### [facility] [address] [place] [address] Dr. Danna Mann PT Coag (PPP) [Time] 10.4 s Normal 9.0-11.6 [facility] Comment on above: Performed By: #### P TT, DDIM, PT #### [facility] [address] [place] [address] Dr. Danna Mann PTTon 02-17-2022 aPTT Coag (Bld) [Time] 26.5 s Normal 22.3-36.2 [facility] Comment on above: Performed By: #### P TT, DDIM, PT #### [facility] [address] [place] [address] Dr. Danna Mann TROPONIN, HIGH SENSITIVITYon 02-17-2022 HSTROP 11.0 pg/mL Normal 4.0-76.1 [facility] Comment on above: Result Comment: CUT- OFF POINTS HAVE BEEN ESTABLISHED BASED ON THE FOURTH UNIVERSAL DEFINITIONS OF MYOCARDIAL INFARCTION. THE UPPER REFERENCE LIMIT (URL) OF TROPONIN, DEFINED THE 99TH PERCENTILE OF cTnI DISTRIBUTION IN A REFERENCE POPULATION, HAS BEEN CONFIRMED THE DECISION THRESHOLD FOR [place] DIAGNOSIS. Performed By: #### H NAHOMY #### [facility] [address] [address] [address] Danna Mann XR CHEST 1 Von 02-17-2022 XR CHEST 1 V EXAMINATION: XR CHES T 1 V HISTORY: Shortness of breath COMPARISON: None. TECHNIQUE: Portable chest FINDINGS: The lung parenchyma is free of consolidation or infiltrate. No pneumothorax or pleural effusion. The cardiac, mediastinal and hilar contours are normal. The visualized osseous structures exhibit no gross abnormality. IMPRESSION: No acute cardiopulmonary abnormality. Electronically authenticated by: JANNY KERN Date: 2022-02-17 17:57 Normal [facility] CBC AUTO DIFFon 01-26-2022 BASO # 0.0 103/ul Normal 0.0-0.1 [facility] Comment on above: Performed By: #### C BC ####[facility] [address] [id number]. Danna Mann Basophils/100 WBC (Bld) 0.6 % Normal 0.2-2.0 [facility] Comment on above: Performed By: #### C BC ####[facility] [address] [id number] Mann EO # 0.1 103/ul Normal 0.0-0.7 [facility] Comment on above: Performed By: #### C BC ####[facility] [address] [id number] Mann Eosinophils/100 WBC (Bld) 1.8 % Normal 0.9-7.0 [facility] Comment on above: Performed By: #### C BC ####[facility] [address] [id number] Mann Erythrocyte distribution width (RBC) [Ratio] 13.1 % Normal 11.0-15.0 [facility] Comment on above: Performed By: #### C BC ####[facility] [address] [address]Dr. Danna Mann Hematocrit (Bld) [Volume fraction] 41.3 % Critically low 42.0-54.0 [facility] Comment on above: Performed By: #### C BC ####[facility] [address] [address]Dr. Danna Johnathan Hemoglobin (Bld) [Mass/Vol] 14.3 g/dL Normal 14.0-18.0 [facility] Comment on above: Performed By: #### C BC ####[facility] [address] [address]Dr. Danna Mann IG # 0.01 10e3/ul Normal 0.00-0.03 [facility] Comment on above: Performed By: #### C BC ####[facility] [address] [place], [place] [address]Dr. Danna Mann IG % 0.2 % Normal 0.0-0.5 [facility] Comment on above: Performed By: #### C BC ####[facility] [address] [place], [place] [address]Dr. Danna Mann LYMPH # 1.2 103/ul Normal 1.2-3.8 [facility] Comment on above: Performed By: #### C BC ####[facility] [address] [address]Dr. Kimberleyragini Mann Lymphocytes/100 WBC (Bld) 18.8 % Critically low 20.5-60.0 [facility] Comment on above: Performed By: #### C BC ####[facility] [address] [address]DrFiona Mann MANUAL DIFF REQ NO Normal [facility] Comment on above: Performed By: #### C BC ####[facility] [address] [place], [place] [address]DrFiona Kimberleyragini Mann MCH (RBC) [Entitic mass] 31.2 pg Normal 25.9-34.0 [facility] Comment on above: Performed By: #### C BC ####[facility] [address] [place], [place] [address]Dr. Danna Johnathan MCHC (RBC) [Mass/Vol] 34.6 g/dL Normal 29.9-35.2 [facility] Comment on above: Performed By: #### C BC ####[facility] [address] [id number]. Danna Johnathan MCV (RBC) [Entitic vol] 90.2 fL Normal 80.0-94.0 [facility] Comment on above: Performed By: #### C BC ####[facility] [address] [id number]. Kimberleyragini Johnathan MONO # 0.6 103/ul Normal 0.3-0.8 [facility] Comment on above: Performed By: #### C BC ####[facility] [address] [address]Dr. Danna Mann Monocytes/100 WBC (Bld) 8.9 % Normal 1.7-12.0 [facility] Comment on above: Performed By: #### C BC ####[facility] [address] [address]Dr. Kimberleyragini Johnathan NEUT # 4.5 103/ul Normal 1.4-6.5 [facility] Comment on above: Performed By: #### C BC ####[facility] [address] [id number]. Kimberleyragini Mann Neutrophils/100 WBC (Bld) 69.7 % Normal 43.0-75.0 [facility] Comment on above: Performed By: #### C BC ####[facility] [address] [id number]. Danna Johnathan Platelet mean volume (Bld) [Entitic vol] 10.4 fL Normal 9.5-13.5 [facility] Comment on above: Performed By: #### C BC ####[facility] [address] [id number]. Danna Mann PLT 201 103/ul Normal 150-450 [facility] Comment on above: Performed By: #### C BC ####[facility] [address] [place], [place] [address]GdFiona Mann RBC 4.58 106/ul Critically low 4.70-6.10 [facility] Comment on above: Performed By: #### C BC ####[facility] [address] [place], [place] [address]OtFiona Mann WBC 6.5 103/ul Normal 4.0-11.0 [facility] Comment on above: Performed By: #### C BC ####[facility] [address] [id number]. Danna Mann GLYCOHEMOGLOBIN A1Con 2021 ADA RECOMMENDATION SEE BELOW Normal [facility] Comment on above: Result Comment: ADA RECOMMENDED LIMIT 4.0 - 6.0 ADA THERAPEUTIC TARGET < 7.0 ACTION SUGGESTED > 7.0 Performed By: #### A 1C #### [facility] [address] [place] [address] Dr. Danna Mann Glucose [Mass/Vol] 111 mg/dL Normal [facility] Comment on above: Performed By: #### A 1C #### [facility] [address] [place] [address] Dr. Danna Mann HbA1c (Bld) [Mass fraction] 5.5 % Normal 4.5-6.2 [facility] Comment on above: Performed By: #### A 1C #### [facility] [address] [place] [address] Dr. Danna Mann LIPID PROFILEon 01-26-2022 CHOL-HDL RATIO NORM SEE BELOW Normal [facility] Comment on above: Result Comment: 3.3 - 4.4 LOW RISK 4.4 - 7.1 AVERAGE RISK 7.1 - 11.0 MODERATE RISK >11.0 HIGH RISK Performed By: #### L IPID, CMP #### [facility] [address] [place] [address] Dr. Danna Mann Cholesterol [Mass/Vol] 236 mg/dL Critically high <=200 [facility] Comment on above: Performed By: #### L IPID, CMP #### [facility] [address] [address] [address] Danna Mann Cholesterol in HDL [Mass/Vol] 54 mg/dL Normal 40-60 [facility] Comment on above: Performed By: #### L IPID, CMP #### [facility] [address] [place] [address] Dr. Danna Mann Cholesterol in LDL [Mass/Vol] 161.4 mg/dL Normal [facility] Comment on above: Performed By: #### L IPID, CMP #### [facility] [address] [place] [address] Dr. Danna Mann Cholesterol.total/ Cholesterol in HDL [Mass ratio] 4.4 {ratio} Normal [facility] Comment on above: Performed By: #### L IPID, CMP #### [facility] [address] [place] [address] Dr. Danna Mann HDL NORMAL > or = 60 mg/dl - LO W CARDIOVASCULAR RISK <40 mg/dl - HIGH CARDIOVASCULAR RISK Normal [facility] Comment on above: Performed By: #### L IPID, CMP #### [facility] [address] [place] [address] Dr. Danna Mann LDL CALC NORMAL SEE BELOW Normal [facility] Comment on above: Result Comment: <100 mg/dl OPTIMAL 100 - 129 mg/dl NEAR OR ABOVE OPTIMAL 130 - 159 mg/dl BORDERLINE HIGH 160 - 189 mg/dl HIGH >190 mg/dl VERY HIGH Performed By: #### L IPID, CMP #### [facility] [address] [place] [address] Dr. Danna Mann Triglyceride [Mass/Vol] 103 mg/dL Normal <=150 [facility] Comment on above: Performed By: #### L IPID, CMP #### [facility] [address] [place] [address] Dr. Danna Mann VLDL CALC 20.6 mg/dL Normal [facility] Comment on above: Performed By: #### L IPID, CMP #### [facility] [address] [place] [address] Dr. Danna Mann PROF 14(COMP METB)on 022 Albumin [Mass/Vol] 3.9 g/dL Normal 3.4-5.0 [facility] Comment on above: Performed By: #### L IPID, CMP #### [facility] [address] [address] [address] Danna Mann Albumin/Globulin [Mass ratio] 1.1 {ratio} Normal [facility] Comment on above: Performed By: #### L IPID, CMP #### [facility] [address] [address] [address] Danna Mann ALP [Catalytic activity/Vol] 85 U/L Normal 46-116 [facility] Comment on above: Performed By: #### L IPID, CMP #### [facility] [address] [address] [address] Danna Mann ALT [Catalytic activity/Vol] 29 U/L Normal 16-63 [facility] Comment on above: Performed By: #### L IPID, CMP #### [facility] [address] [address] [address] Danna Mann Anion gap [Moles/Vol] 11.4 mmol/L Normal [facility] Comment on above: Performed By: #### L IPID, CMP #### [facility] [address] [address] [address] Danna Mann AST [Catalytic activity/Vol] 22 U/L Normal 15-37 [facility] Comment on above: Performed By: #### L IPID, CMP #### [facility] [address] [address] [address] Danna Mann Bilirubin [Mass/Vol] 0.7 mg/dL Normal 0.2-1.0 [facility] Comment on above: Performed By: #### L IPID, CMP #### [facility] [address] [address] [address] Danna Mann Calcium [Mass/Vol] 9.3 mg/dL Normal 8.5-10.1 [facility] Comment on above: Performed By: #### L IPID, CMP #### [facility] [address] [address] [address] Danna Mann Chloride [Moles/Vol] 107 mmol/L Normal 98-107 [facility] Comment on above: Performed By: #### L IPID, CMP #### [facility] [address] [address] [address] Danna Mann CO2 [Moles/Vol] 26.8 mmol/L Normal 21.0-32.0 [facility] Comment on above: Performed By: #### L IPID, CMP #### [facility] [address] [address] [address] Danna Mann Creatinine [Mass/Vol] 1.37 mg/dL Critically high 0.70-1.30 [facility] Comment on above: Performed By: #### L IPID, CMP #### [facility] [address] [address] [address] Danna Mann EGFR-AF MALAYSIAN >60 Normal >=60 [facility] Comment on above: Performed By: #### L IPID, CMP #### [facility] [address] [address] [address] Danna Mann EGFR-NON AF MALAYSIAN 51 mL/min/1.73m2 Critically low >=60 [facility] Comment on above: Performed By: #### L IPID, CMP #### [facility] [address] [address] [address] Danna Mann Globulin (S) [Mass/Vol] 3.5 g/dL Normal [facility] Comment on above: Performed By: #### L IPID, CMP #### [facility] [address] [address] [address] Danna Mann Glucose [Mass/Vol] 107 mg/dL Critically high 74-106 [facility] Comment on above: Performed By: #### L IPID, CMP #### [facility] [address] [address] [address] Danna Mann Potassium [Moles/Vol] 5.2 mmol/L Critically high 3.5-5.1 [facility] Comment on above: Performed By: #### L IPID, CMP #### [facility] [address] [address] [address] Danna Mann Protein [Mass/Vol] 7.4 g/dL Normal 6.4-8.2 [facility] Comment on above: Performed By: #### L IPID, CMP #### [facility] [address] [address] [address] Danna Mann Sodium [Moles/Vol] 140 mmol/L Normal 136-145 [facility] Comment on above: Performed By: #### L IPID, CMP #### [facility] [address] [address] [address] Danna Mann Urea nitrogen [Mass/Vol] 26.0 mg/dL Critically high 7.0-18.0 [facility] Comment on above: Performed By: #### L IPID, CMP #### [facility] [address] [address] [address] Danna Mann Urea nitrogen/Creatinin e [Mass ratio] 19.0 mg/mg Normal [facility] Comment on above: Performed By: #### L IPID, CMP #### [facility] [address] [place] [address] Dr. Danna Mann Vital Signs Date Time Vital Sign Value Performing Clinician Facility 11-06-2023 12:43-0400 Blood Pressure Location [facility] 11-06-2023 12:43-0400 Body temperature 98.6 [degF] Boubacar NIÑO [facility] 11-06-2023 12:43-0400 Diastolic blood pressure 69 mm[Hg] Boubacar NIÑO [facility] 11-06-2023 12:43-0400 Heart rate 59 /min Boubacar NIÑO [facility] 11-06-2023 12:43-0400 Respiratory rate 16 /min Boubacar NIÑO [facility] 11-06-2023 12:43-0400 Systolic blood pressure 123 mm[Hg] Boubacar NIÑO [facility] 09-11-2023 14:04-0400 Blood Pressure Location Boubacar NIÑO [facility] 09-11-2023 14:04-0400 Body temperature 98.42 [degF] Boubacar NIÑO [facility] 09-11-2023 14:04-0400 Diastolic blood pressure 63 mm[Hg] Boubacar NIÑO [facility] 09-11-2023 14:04-0400 Heart rate 60 /min Boubacar NIÑO [facility] 09-11-2023 14:04-0400 Respiratory rate 16 /min Boubacar NIÑO [facility] 09-11-2023 14:04-0400 Systolic blood pressure 125 mm[Hg] Boubacar NIÑO [facility] 05-18-2023 14:48-0500 Blood Pressure Location Deanna Orzech [facility] 05-18-2023 14:48-0500 Diastolic blood pressure 72 mm[Hg] Deanna Orzech [facility] 05-18-2023 14:48-0500 Systolic blood pressure 120 mm[Hg] Deanna Orzech [facility] 11-28-2022 12:51-0400 Blood Pressure Location Boubacar NIÑO [facility] 11-28-2022 12:51-0400 Diastolic blood pressure 70 mm[Hg] Boubacar NIÑO [facility] 11-28-2022 12:51-0400 Heart rate 75 /min Boubacar NIÑO [facility] 11-28-2022 12:51-0400 Respiratory rate 16 /min Boubacar NIÑO [facility] 11-28-2022 12:51-0400 Systolic blood pressure 114 mm[Hg] Boubacar NIÑO [facility] 11-22-2021 13:22-0400 Blood Pressure Location Boubacarjamal NIÑO [facility] 11-22-2021 13:22-0400 Diastolic blood pressure 71 mm[Hg] Boubacar NIÑO [facility] 11-22-2021 13:22-0400 Heart rate 70 /min Boubacar NIÑO [facility] 11-22-2021 13:22-0400 Respiratory rate 16 /min Boubacar NIÑO [facility] 11-22-2021 13:22-0400 Systolic blood pressure 123 mm[Hg] Boubacar NIÑO [facility] Encounters Encounter Date Encounter Type Care Provider Facility Start: 10-24-2024 ambulatory MD Pk Hassan ity:[facility] Start: 07-11-2024 End: 07-11-2024 ambulatory Donta Liao Facility:[facility] Start: 06-26-2024 ambulatory Pk Msue Facil ity:[facility] Start: 02-19-2024 ambulatory Boubacar NIÑO Facili ty: Start: 11-06-2023 End: 11-06-2023 ambulatory Boubacar NIÑO Facility: Start: 11-06-2023 End: 11-06-2023 Patient encounter procedure Boubacar NIÑO [facility] Start: 10-26-2023 End: 10-26-2023 ambulatory MD Pk Muse Facility:[facility] Start: 09-11-2023 End: 09-11-2023 ambulatory Boubacar NIÑO Facility: Start: 09-11-2023 End: 09-11-2023 Patient encounter procedure [facility]acar NI[facility] Start: 2023 End: 2023 Patient encounter procedure Boubacar Vinnie MUSTAPHA [facility] Start: 06-12-2023 End: 06-12-2023 ambulatory JASWANT HAIDERROBINA Not Available Start: 05-31-2023 End: 05-31-2023 Patient encounter procedure Deanna X Orzech [facility] Start: 05-18-2023 End: 05-18-2023 Lab Drop off Deanna X Orzech [facility] Start: 05-18-2023 End: 05-18-2023 Patient encounter procedure Deanna X Orzech [facility] [place] Start: 05-17-2023 End: 05-17-2023 Patient encounter procedure Boubacar NIÑO [facility] Start: 11-28-2022 End: 11-28-2022 Patient encounter procedure Boubacar NIÑO [facility] Start: 07-06-2022 End: 07-06-[address] TRISTAN PITTMAN . Facility:[facility] Start: 03-05-2022 End: 03-05-[address] SHERLYN POPE Facility:[facility] Start: 03-04-2022 End: 03-05-[address] TRISTAN PITTMAN . Facility:[facility] Start: 02-17-2022 End: 02-17-2022 ambulatory ROSELIA ACEVES . Facility:[facility] Start: 01-26-2022 End: 01-27-[address] TRISTAN PITTMAN . Facility:[facility] Start: 11-22-2021 End: 11-22-2021 Patient encounter procedure Boubacar NIÑO [facility] Start: 11-18-[address] TRITSAN PITTMAN . Facili ty:[facility] Start: 11-12-[address] TRISTAN PITTMAN . Facili ty:[facility] Procedures Date Procedure Procedure Detail Performing Clinician Start: 01-26-[address] ALO POPE Comment on above: Performed By: #### P [facility] #### [facility] [address] [place] [address] Dr. Danna Mann Start: 05-04-2021 Urodynamic studies Patr vannessa NIÑO Start: 07-06-2017 Arthroscopy of shoulder Boubacar NIÑO Comment on above: SHOULDER ARTHROSCOPY W/ POSSIBLE REPAIR bilateral carpal ihsan karolina release Boubacar NIÑO Bilateral cataracts (disorder) Boubacar NIÑO Colonoscopy Boubacar NIÑO excision of heel spur Martin NIÑO Incision of trachea Boubacar NIÑO left total knee arthroplasty Boubacar NIÑO tracheostomy closure Boubacar NIÑO Immunizations Immunization Date Immunization Notes Care Provider Fa cility 08-04-2020 SARS-CoV-2 (COVID-19 ) mRNA BNT-162b2 vax Boubacar NIÑO [facility] 07-13-2020 SARS-CoV-2 (COVID-19 ) mRNA BNT-162b2 vax Boubacar NIÑO [facility] Payers Date Payer Category Payer Medicare [id number] 1959 Medicare [id number] 1959 Self-pay [id number] 1945 Unknown [id number] 2.16.84 [id number] 1945 Unknown [id number] 2.16.84 0.1.656387.3.579.2.593 1945 Unknown [id number] 2.16.84 0.1.050587.3.579.2.593 1945 Unknown [id number] 2.16.84 0.1.974099.3.579.2.593 1945 Unknown [id number] 2.16.84 0.1.700446.3.579.2.593 1945 Unknown [id number] 2.16.84 0.1.664847.3.579.2.593 1945 Unknown [id number] 2.16.84 0.1.454583.3.579.2.593 1945 Unknown [id number] 2.16.84 0.1.615796.3.579.2.1259 1945 Unknown [id number] 2.16.8 40.1.251021.3.579.2.718 1945 Unknown [id number] 2.16.8 40.1.756148.3.579.2.718 1945 Unknown [id number] 2.16.8 40.1.015974.3.579.2.727 1945 Unknown [id number] 2.16.8 40.1.423639.3.579.2.727 1945 Unknown [id number] 2.16.8 40.1.687332.3.579.2.727 1945 Unknown [id number] 2.16.8 40.1.850804.3.579.2.727 1945 Unknown [id number] 2.16.8 40.1.468625.3.579.2.727 1945 Unknown [id number] 2.16.8 40.1.974143.3.579.2.727 Social History Date Type Detail Facility Start: 04-12-2021 End: 11-06-2023 Tobacco smoking status Never smoked tobacco (finding) [facility] Sex Assigned At Male [facility] Tobacco smoking status Never [facility] Functional Status Date Assessment Result Facility 11-06-2023 Functional Status N/A [facility] 09-11-2023 Functional Status N/A [facility] 2023 Functional Status N/A [facility] 05-18-2023 Functional Status N/A [facility] 11-28-2022 Functional Status N/A [facility] 11-22-2021 Functional Status N/A [facility] Clinical Notes 11-22-2021 to 07-12-2024 RadiologyRadiology Note Date & Type Note Facility 07-12-2024 Note [id number]#1.00[facility] 07-12-2024 Note [id number]#1.00[facility] 07-12-2024 Note [id number]#1.00[facility] 07-11-[address] [facility] SURGERY Clinical Discharge Summary PERSON INFORMATION Name JUNIOR Chasidy CHAUDHRY Age 79 Years 1945 Sex MALE Language Mohawk PCP Micha MCCAIN, Pk Wu Marital Status Single Phone Med Service Ambulatory Surgery Acct# Arrival 07/11/2024 06:12:30 Visit Reason SURGERY-CYSTO GREENLIGHT LASER ABLATION Acuity LOS 041 22:01 Address: [address] [place] [address] Comment: PROVIDER INFORMATION VITALS INFORMATION Vital Sign Triage Latest Temp Oral Temp Temporal Temp Intravascular Temp Axillary Temp Rectal 02 Sat 100 % 98 % Respiratory Rate Peripheral Pulse Rate Apical Heart Rate Blood Pressure / 84 mmHg / 70 mmHg Comment: MEDICAL INFORMATION Allergy Info: Latex Allergy; sulfa drugs; Bactrim; nitrofurantoin Prescriptions Given: ascorbic acid/chondroitin/glucosa/doris (Glucosamine Chondroitin) 1 tab(s) Oral (given by mouth) every day. aspirin (aspirin 81 mg oral delayed release tablet) 1 tab(s) Oral (given by mouth) every day. cephalexin (Keflex 500 mg oral capsule) 1 cap(s) Oral (given by mouth) every 8 hours.. Refills: 0. dutasteride (Avodart 0.5 mg oral capsule) 1 cap(s) Oral (given by mouth) every day. omega-3 polyunsaturated fatty acids (Nelson-3 Fish Oil 1000 mg oral capsule) 1 tab(s) Oral (given by mouth) every day. tamsulosin (Flomax 0.4 mg oral capsule) 1 cap(s) Oral (given by mouth) At bedtime. traMADol (Ultram 50 mg oral tablet) 1 tab(s) Oral (given by mouth) every 6 hours as needed as needed for pain. Refills: 0. vitamin E 1 tab(s) Oral (given by mouth) every day. Pt unsure of doseage. Medication List: New Medications [facility]/pharmacy #[id number], [address] [place] [phone], [phone] cephalexin (Keflex 500 mg oral capsule) 1 cap(s) Oral (given by mouth) every 8 hours.. Refills: 0. traMADol (Ultram 50 mg oral tablet) 1 tab(s) Oral (given by mouth) every 6 hours as needed as needed for pain. Refills: 0. Medications to Continue That Have Not Changed Other Medications ascorbic acid/chondroitin/glucosa/doris (Glucosamine Chondroitin) 1 tab(s) Oral (given by mouth) every day. aspirin (aspirin 81 mg oral delayed release tablet) 1 tab(s) Oral (given by mouth) every day. dutasteride (Avodart 0.5 mg oral capsule) 1 cap(s) Oral (given by mouth) every day. omega-3 polyunsaturated fatty acids (Nelson-3 Fish Oil 1000 mg oral capsule) 1 tab(s) Oral (given by mouth) every day. tamsulosin (Flomax 0.4 mg oral capsule) 1 cap(s) Oral (given by mouth) At bedtime. vitamin E 1 tab(s) Oral (given by mouth) every day. Pt unsure of doseage. New Medications [facility]/pharmacy #[id number], [address] [place] [phone], [phone] cephalexin (Keflex 500 mg oral capsule) 1 cap(s) Oral (given by mouth) every 8 hours.. Refills: 0. traMADol (Ultram 50 mg oral tablet) 1 tab(s) Oral (given by mouth) every 6 hours as needed as needed for pain. Refills: 0. Medications to Continue That Have Not Changed Other Medications ascorbic acid/chondroitin/glucosa/doris (Glucosamine Chondroitin) 1 tab(s) Oral (given by mouth) every day. aspirin (aspirin 81 mg oral delayed release tablet) 1 tab(s) Oral (given by mouth) every day. dutasteride (Avodart 0.5 mg oral capsule) 1 cap(s) Oral (given by mouth) every day. omega-3 polyunsaturated fatty acids (Nelson-3 Fish Oil 1000 mg oral capsule) 1 tab(s) Oral (given by mouth) every day. tamsulosin (Flomax 0.4 mg oral capsule) 1 cap(s) Oral (given by mouth) At bedtime. vitamin E 1 tab(s) Oral (given by mouth) every day. Pt unsure of doseage. New Medications [facility]/pharmacy #[id number], [address], [place] [phone], [phone] cephalexin (Keflex 500 mg oral capsule) 1 cap(s) Oral (given by mouth) every 8 hours.. Refills: 0. traMADol (Ultram 50 mg oral tablet) 1 tab(s) Oral (given by mouth) every 6 hours as needed as needed for pain. Refills: 0. Medications to Continue That Have Not Changed Other Medications ascorbic acid/chondroitin/glucosa/doris (Glucosamine Chondroitin) 1 tab(s) Oral (given by mouth) every day. aspirin (aspirin 81 mg oral delayed release tablet) 1 tab(s) Oral (given by mouth) every day. dutasteride (Avodart 0.5 mg oral capsule) 1 cap(s) Oral (given by mouth) every day. omega-3 polyunsaturated fatty acids (Nelson-3 Fish Oil 1000 mg oral capsule) 1 tab(s) Oral (given by mouth) every day. tamsulosin (Flomax 0.4 mg oral capsule) 1 cap(s) Oral (given by mouth) At bedtime. vitamin E 1 tab(s) Oral (given by mouth) every day. Pt unsure of doseage. Comment: Lab and Radiology Results Laboratory or Other Results This Visit (last charted value for your 07/11/2024 visit) No Laboratory or Other Results This Visit DIET & ACTIVITY Patient Activity Level: Patient Diet: Patient Activity Restrictions: DISCHARGE INFORMATION Discharge Disposition: Discharge Location: DEPART REASON INCOMPLETE INFORMATION PATIENT EDUCATION INFORMATION Instructions: Green Light Laser Prostate Treatment, C (more content not included)... 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 The prostate may get bigger as a man gets older. The condition is not caused by cancer. The prostate is a walnut-sized gland that is involved in the production of semen. It is located in front of the rectum and below the bladder. The bladder stores urine. The urethra carries stored urine out of the body. An enlarged prostate can press on the urethra. This can make it harder to pass urine. The buildup of urine in the bladder can cause infection. Back pressure and infection may progress to bladder damage and kidney (renal) failure. What are the causes? This condition is part of the normal aging process. However, not all men develop problems from this condition. If the prostate enlarges away from the urethra, urine flow will not be blocked. If it enlarges toward the urethra and compresses it, there will be problems passing urine. What increases the risk? This condition is more likely to develop in men older than 50 years. What are the signs or symptoms? Symptoms of this condition include: Getting up often during the night to urinate. Needing to urinate frequently during the day. Difficulty starting urine flow. Decrease in size and strength of your urine stream. Leaking (dribbling) after urinating. Inability to pass urine. This needs immediate treatment. Inability to completely empty your bladder. Pain when you pass urine. This is more common if there is also an infection. Urinary tract infection (UTI). How is this diagnosed? This condition is diagnosed based on your medical history, a physical exam, and your symptoms. Tests will also be done, such as: A post-void bladder scan. This measures any amount of urine that may remain in your bladder after you finish urinating. A digital rectal exam. In a rectal exam, your health care provider checks your prostate by putting a lubricated, gloved finger into your rectum to feel the back of your prostate gland. This exam detects the size of your gland and any abnormal lumps or growths. An exam of your urine (urinalysis). A prostate specific antigen (PSA) screening. This is a blood test used to screen for prostate cancer. An ultrasound. This test uses sound waves to electronically produce a picture of your prostate gland. Your health care provider may refer you to a specialist in kidney and prostate diseases (urologist). How is this treated? Once symptoms begin, your health care provider will monitor your condition (active surveillance or watchful waiting). Treatment for this condition will depend on the severity of your condition. Treatment may include: Observation and yearly exams. This may be the only treatment needed if your condition and symptoms are mild. Medicines to relieve your symptoms, including: ?Medicines to shrink the prostate. ?Medicines to relax the muscle of the prostate. Surgery in severe cases. Surgery may include: ?Prostatectomy. In this procedure, the prostate tissue is removed completely through an open incision or with a laparoscope or robotics. ?Transurethral resection of the prostate (TURP). In this procedure, a tool is inserted through the opening at the tip of the penis (urethra). It is used to cut away tissue of the inner core of the prostate. The pieces are removed through the same opening of the penis. This removes the blockage. ?Transurethral incision (TUIP). In this procedure, small cuts are made in the prostate. This lessens the prostate's pressure on the urethra. ?Transurethral microwave thermotherapy (TUMT). This procedure uses microwaves to create heat. The heat destroys and removes a small amount of prostate tissue. ?Transurethral needle ablation (TUNA). This procedure uses radio frequencies to destroy and remove a small amount of prostate tissue. ?Interstitial laser coagulation (ILC). This procedure uses a laser to destroy and remove a small amount of prostate tissue. ?Transurethral electrovaporization (TUVP). This procedure uses electrodes to destroy and remove a small amount of prostate tissue. ?Prostatic urethral lift. This procedure inserts an implant to push the lobes of the prostate away from the urethra. Follow these instructions at home: Take [id number] and prescription medicines only as told by your health care provider. Monitor your symptoms for any changes. Contact your health care provider with any changes. Avoid drinking large amounts of liquid before going to bed or out in public. Avoid or reduce how much caffeine or alcohol you drink. Give yourself time when you urinate. Keep all follow-up visits. This is important. Contact a health care provider if: You have unexplained back pain. Your symptoms do not get better with treatment. You develop side effects from the medicine you are taking. Your urine becomes very dark or has a bad smell. Your lower abdomen becomes distended and you have trouble passing urine. Get help right away if: You have a fever or chills. You suddenly cannot urinate. You feel light-headed or very dizzy, or you faint. There are large amounts of blood or clots in your urine. Your urinary problems become hard to manage. You develop moderate to severe low back or flank pain. The flank is the side of your body between the ribs and the hip. These symptoms may be an emergency. Get help right away. Call 911. Do not wait to see if the symptoms will go away. Do not drive yourself to the hospital. Summary Benign prostatic hyperplasia (BPH) is an enlarged prostate that is caused by the normal aging process. It is not caused by cancer. An enlarged prostate can press on the urethra. This can make it hard to pass urine. This condition is more likely to develop in men older than 50 years. Get help right away if you suddenly cannot urinate. This information is not intended to replace advice given to you by your health care provider. Make sure you discuss any questions you have with your health care provider. Document Revised: 11/17/2021 Document Reviewed: 11/17/2021 Elsevier Patient Education 2022 [employer]. Follow Up Care 11/28/2022 13:20:42 With:MUSTAPHA MCCAIN, Boubacar [place], URL Address: [facility] [address] , [place] [phone] When: Unknown [facility] 09-11-2023 Hospital Discharge instructions Patient Education 09/11/2023 15:05:40 Benign Prostatic Hyperplasia Benign Prostatic Hyperplasia Benign prostatic hyperplasia (BPH) is an enlarged prostate gland that is caused by the normal aging process. The prostate may get bigger as a man gets older. The condition is not caused by cancer. The prostate is a walnut-sized gland that is involved in the production of semen. It is located in front of the rectum and below the bladder. The bladder stores urine. The urethra carries stored urine out of the body. An enlarged prostate can press on the urethra. This can make it harder to pass urine. The buildup of urine in the bladder can cause infection. Back pressure and infection may progress to bladder damage and kidney (renal) failure. What are the causes? This condition is part of the normal aging process. However, not all men develop problems from this condition. If the prostate enlarges away from the urethra, urine flow will not be blocked. If it enlarges toward the urethra and compresses it, there will be problems passing urine. What increases the risk? This condition is more likely to develop in men older than 50 years. What are the signs or symptoms? Symptoms of this condition include: Getting up often during the night to urinate. Needing to urinate frequently during the day. Difficulty starting urine flow. Decrease in size and strength of your urine stream. Leaking (dribbling) after urinating. Inability to pass urine. This needs immediate treatment. Inability to completely empty your bladder. Pain when you pass urine. This is more common if there is also an infection. Urinary tract infection (UTI). How is this diagnosed? This condition is diagnosed based on your medical history, a physical exam, and your symptoms. Tests will also be done, such as: A post-void bladder scan. This measures any amount of urine that may remain in your bladder after you finish urinating. A digital rectal exam. In a rectal exam, your health care provider checks your prostate by putting a lubricated, gloved finger into your rectum to feel the back of your prostate gland. This exam detects the size of your gland and any abnormal lumps or growths. An exam of your urine (urinalysis). A prostate specific antigen (PSA) screening. This is a blood test used to screen for prostate cancer. An ultrasound. This test uses sound waves to electronically produce a picture of your prostate gland. Your health care provider may refer you to a specialist in kidney and prostate diseases (urologist). How is this treated? Once symptoms begin, your health care provider will monitor your condition (active surveillance or watchful waiting). Treatment for this condition will depend on the severity of your condition. Treatment may include: Observation and yearly exams. This may be the only treatment needed if your condition and symptoms are mild. Medicines to relieve your symptoms, including: ?Medicines to shrink the prostate. ?Medicines to relax the muscle of the prostate. Surgery in severe cases. Surgery may include: ?Prostatectomy. In this procedure, the prostate tissue is removed completely through an open incision or with a laparoscope or robotics. ?Transurethral resection of the prostate (TURP). In this procedure, a tool is inserted through the opening at the tip of the penis (urethra). It is used to cut away tissue of the inner core of the prostate. The pieces are removed through the same opening of the penis. This removes the blockage. ?Transurethral incision (TUIP). In this procedure, small cuts are made in the prostate. This lessens the prostate's pressure on the urethra. ?Transurethral microwave thermotherapy (TUMT). This procedure uses microwaves to create heat. The heat destroys and removes a small amount of prostate tissue. ?Transurethral needle ablation (TUNA). This procedure uses radio frequencies to destroy and remove a small amount of prostate tissue. ?Interstitial laser coagulation (ILC). This procedure uses a laser to destroy and remove a small amount of prostate tissue. ?Transurethral electrovaporization (TUVP). This procedure uses electrodes to destroy and remove a small amount of prostate tissue. ?Prostatic urethral lift. This procedure inserts an implant to push the lobes of the prostate away from the urethra. Follow these instructions at home: Take [id number] and prescription medicines only as told by your health care provider. Monitor your symptoms for any changes. Contact your health care provider with any changes. Avoid drinking large amounts of liquid before going to bed or out in public. Avoid or reduce how much caffeine or alcohol you drink. Give yourself time when you urinate. Keep all follow-up visits. This is important. Contact a health care provider if: You have unexplained back pain. Your symptoms do not get better with treatment. You develop side effects from the medicine you are taking. Your urine becomes very dark or has a bad smell. Your lower abdomen becomes distended and you have trouble passing urine. Get help right away if: You have a fever or chills. You suddenly cannot urinate. You feel light-headed or very dizzy, or you faint. There are large amounts of blood or clots in your urine. Your urinary problems become hard to manage. You develop moderate to severe low back or flank pain. The flank is the side of your body between the ribs and the hip. These symptoms may be an emergency. Get help right away. Call 911. Do not wait to see if the symptoms will go away. Do not drive yourself to the hospital. Summary Benign prostatic hyperplasia (BPH) is an enlarged prostate that is caused by the normal aging process. It is not caused by cancer. An enlarged prostate can press on the urethra. This can make it hard to pass urine. This condition is more likely to develop in men older than 50 years. Get help right away if you suddenly cannot urinate. This information is not intended to replace advice given to you by your health care provider. Make sure you discuss any questions you have with your health care provider. Document Revised: 11/17/2021 Document Reviewed: 11/17/2021 [employer] Patient Education 2022 [employer]. Follow Up Care 2023 13:49:27 With:MUSTAPHA MCCAIN, Boubacar [place], URL Address: [facility] [address] , [place] [address] [phone] When: Unknown [facility] 2023 Hospital Discharge instructions Patient Education 2023 13:46:23 [facility] - Cystoscopy Discharge Instructions (CUSTOM) Cystoscopy Voiding after the procedure: there may be some pain, burning, urgency, frequency and blood tinged urine following the procedure. These symptoms usually resolve within 2-5 days. Drink the amount of fluid it takes to keep the urine pink to yellow or clear in color. Drinking enough water and fluids will help to ease any discomfort after your procedure. If you are having problems that seem out of the ordinary, please call. If unable to contact your physician and you feel it is an emergency, go to the nearest emergency room or call 911 Diet you may resume your normal diet. Activity you may resume your normal activities Call if you have a fever over 100 degrees. Follow Up Care 05/29/2023 13:01:20 With:Boubacar NIÑO Address: [facility] [address] [place] [phone]- Business (1) When:09/25/2023 13:46:01 [facility] 11-28-2022 Hospital Discharge instructions Patient Education 11/28/2022 13:10:40 Benign Prostatic Hyperplasia Benign Prostatic Hyperplasia Benign prostatic hyperplasia (BPH) is an enlarged prostate gland that is caused by the normal aging process. The prostate may get bigger as a man gets older. The condition is not caused by cancer. The prostate is a walnut-sized gland that is involved in the production of semen. It is located in front of the rectum and below the bladder. The bladder stores urine. The urethra carries stored urine out of the body. An enlarged prostate can press on the urethra. This can make it harder to pass urine. The buildup of urine in the bladder can cause infection. Back pressure and infection may progress to bladder damage and kidney (renal) failure. What are the causes? This condition is part of the normal aging process. However, not all men develop problems from this condition. If the prostate enlarges away from the urethra, urine flow will not be blocked. If it enlarges toward the urethra and compresses it, there will be problems passing urine. What increases the risk? This condition is more likely to develop in men older than 50 years. What are the signs or symptoms? Symptoms of this condition include: Getting up often during the night to urinate. Needing to urinate frequently during the day. Difficulty starting urine flow. Decrease in size and strength of your urine stream. Leaking (dribbling) after urinating. Inability to pass urine. This needs immediate treatment. Inability to completely empty your bladder. Pain when you pass urine. This is more common if there is also an infection. Urinary tract infection (UTI). How is this diagnosed? This condition is diagnosed based on your medical history, a physical exam, and your symptoms. Tests will also be done, such as: A post-void bladder scan. This measures any amount of urine that may remain in your bladder after you finish urinating. A digital rectal exam. In a rectal exam, your health care provider checks your prostate by putting a lubricated, gloved finger into your rectum to feel the back of your prostate gland. This exam detects the size of your gland and any abnormal lumps or growths. An exam of your urine (urinalysis). A prostate specific antigen (PSA) screening. This is a blood test used to screen for prostate cancer. An ultrasound. This test uses sound waves to electronically produce a picture of your prostate gland. Your health care provider may refer you to a specialist in kidney and prostate diseases (urologist). How is this treated? Once symptoms begin, your health care provider will monitor your condition (active surveillance or watchful waiting). Treatment for this condition will depend on the severity of your condition. Treatment may include: Observation and yearly exams. This may be the only treatment needed if your condition and symptoms are mild. Medicines to relieve your symptoms, including: ?Medicines to shrink the prostate. ?Medicines to relax the muscle of the prostate. Surgery in severe cases. Surgery may include: ?Prostatectomy. In this procedure, the prostate tissue is removed completely through an open incision or with a laparoscope or robotics. ?Transurethral resection of the prostate (TURP). In this procedure, a tool is inserted through the opening at the tip of the penis (urethra). It is used to cut away tissue of the inner core of the prostate. The pieces are removed through the same opening of the penis. This removes the blockage. ?Transurethral incision (TUIP). In this procedure, small cuts are made in the prostate. This lessens the prostate's pressure on the urethra. ?Transurethral microwave thermotherapy (TUMT). This procedure uses microwaves to create heat. The heat destroys and removes a small amount of prostate tissue. ?Transurethral needle ablation (TUNA). This procedure uses radio frequencies to destroy and remove a small amount of prostate tissue. ?Interstitial laser coagulation (ILC). This procedure uses a laser to destroy and remove a small amount of prostate tissue. ?Transurethral electrovaporization (TUVP). This procedure uses electrodes to destroy and remove a small amount of prostate tissue. ?Prostatic urethral lift. This procedure inserts an implant to push the lobes of the prostate away from the urethra. Follow these instructions at home: Take [id number] and prescription medicines only as told by your health care provider. Monitor your symptoms for any changes. Contact your health care provider with any changes. Avoid drinking large amounts of liquid before going to bed or out in public. Avoid or reduce how much caffeine or alcohol you drink. Give yourself time when you urinate. Keep all follow-up visits. This is important. Contact a health care provider if: You have unexplained back pain. Your symptoms do not get better with treatment. You develop side effects from the medicine you are taking. Your urine becomes very dark or has a bad smell. Your lower abdomen becomes distended and you have trouble passing urine. Get help right away if: You have a fever or chills. You suddenly cannot urinate. You feel light-headed or very dizzy, or you faint. There are large amounts of blood or clots in your urine. Your urinary problems become hard to manage. You develop moderate to severe low back or flank pain. The flank is the side of your body between the ribs and the hip. These symptoms may be an emergency. Get help right away. Call 911. Do not wait to see if the symptoms will go away. Do not drive yourself to the hospital. Summary Benign prostatic hyperplasia (BPH) is an enlarged prostate that is caused by the normal aging process. It is not caused by cancer. An enlarged prostate can press on the urethra. This can make it hard to pass urine. This condition is more likely to develop in men older than 50 years. Get help right away if you suddenly cannot urinate. This information is not intended to replace advice given to you by your health care provider. Make sure you discuss any questions you have with your health care provider. Document Revised: 11/17/2021 Document Reviewed: 11/17/2021 [employer] Patient Education 2022 [employer]. Follow Up Care 11/22/2021 14:10:08 With:MUSTAPHA MCCAIN, Boubacar [place], URL Address: [facility] [address] , [place] [address]- [phone] When: Unknown Comments:1 year [facility] [place] 11-22-2021 Hospital Discharge instructions Patient Education 11/22/2021 14:03:36 Calorie Counting for Weight Loss Calorie Counting for Weight Loss Calories are units of energy. Your body needs a certain amount of calories from food to keep you going throughout the day. When you eat more calories than your body needs, your body stores the extra calories as fat. When you eat fewer calories than your body needs, your body tristan fat to get the energy it needs. Calorie counting means keeping track of how many calories you eat and drink each day. Calorie counting can be helpful if you need to lose weight. If you make sure to eat fewer calories than your body needs, you should lose weight. Ask your health care provider what a healthy weight is for you. For calorie counting to work, you will need to eat the right number of calories in a day in order to lose a healthy amount of weight per week. A dietitian can help you determine how many calories you need in a day and will give you suggestions on how to reach your calorie goal. A healthy amount of weight to lose per week is usually 1 2 lb (0.5 0.9 kg). This usually means that your daily calorie intake should be reduced by 500 750 calories. Eating 1,200 1,500 calories per day can help most women lose weight. Eating 1,500 1,800 calories per day can help most men lose weight. What is my plan? My goal is to have calories per day. If I have this many calories per day, I should lose around pounds per week. What do I need to know about calorie counting? In order to meet your daily calorie goal, you will need to: Find out how many calories are in each food you would like to eat. Try to do this before you eat. Decide how much of the food you plan to eat. Write down what you ate and how many calories it had. Doing this is called keeping a food log. To successfully lose weight, it is important to balance calorie counting with a healthy lifestyle that includes regular activity. Aim for 150 minutes of moderate exercise (such as walking) or 75 minutes of vigorous exercise (such as running) each week. Where do I find calorie information? The number of calories in a food can be found on a Nutrition Facts label. If a food does not have a Nutrition Facts label, try to look up the calories online or ask your dietitian for help. Remember that calories are listed per serving. If you choose to have more than one serving of a food, you will have to multiply the calories per serving by the amount of servings you plan to eat. For example, the label on a package of bread might say that a serving size is 1 slice and that there are 90 calories in a serving. If you eat 1 slice, you will have eaten 90 calories. If you eat 2 slices, you will have eaten 180 calories. How do I keep a food log? Immediately after each meal, record the following information in your food log: What you ate. Don't forget to include toppings, sauces, and other extras on the food. How much you ate. This can be measured in cups, ounces, or number of items. How many calories each food and drink had. The total number of calories in the meal. Keep your food log near you, such as in a small notebook in your pocket, or use a mobile mukesh or website. Some programs will calculate calories for you and show you how many calories you have left for the day to meet your goal. What are some calorie counting tips? Use your calories on foods and drinks that will fill you up and not leave you hungry: ?Some examples of foods that fill you up are nuts and nut butters, vegetables, lean proteins, and high-fiber foods like whole grains. High-fiber foods are foods with more than 5 g fiber per serving. ?Drinks such as sodas, specialty coffee drinks, alcohol, and juices have a lot of calories, yet do not fill you up. Eat nutritious foods and avoid empty calories. Empty calories are calories you get from foods or beverages that do not have many vitamins or protein, such as candy, sweets, and soda. It is better to have a nutritious high-calorie food (such as an avocado) than a food with few nutrients (such as a bag of chips). Know how many calories are in the foods you eat most often. This will help you calculate calorie counts faster. Pay attention to calories in drinks. Low-calorie drinks include water and unsweetened drinks. Pay attention to nutrition labels for low fat or fat free foods. These foods sometimes have the same amount of calories or more calories than the full fat versions. They also often have added sugar, starch, or salt, to make up for flavor that was removed with the fat. Find a way of tracking calories that works for you. Get creative. Try different apps or programs if writing down calories does not work for you. What are some portion control tips? Know how many calories are in a serving. This will help you know how many servings of a certain food you can have. Use a measuring cup to measure serving sizes. You could also try weighing out portions on a kitchen scale. With time, you will be able to estimate serving sizes for some foods. Take some time to put servings of different foods on your favorite plates, bowls, and cups so you know what a serving looks like. Try not to eat straight from a bag or box. Doing this can lead to overeating. Put the amount you would like to eat in a cup or on a plate to make sure you are eating the right portion. Use smaller plates, glasses, and bowls to prevent overeating. Try not to multitask (for example, watch TV or use your computer) while eating. If it is time to eat, sit down at a table and enjoy your food. This will help you to know when you are full. It will also help you to be aware of what you are eating and how much you are eating. What are tips for following this plan? Reading food labels Check the calorie count compared to the serving size. The serving size may be smaller than what you are used to eating. Check the source of the calories. Make sure the food you are eating is high in vitamins and protein and low in saturated and trans fats. Shopping Read nutrition labels while you shop. This will help you make healthy decisions before you decide to purchase your food. Make a grocery list and stick to it. Cooking Try to cook your favorite foods in a healthier way. For example, try baking instead of frying. Use low-fat dairy products. Meal planning Use more fruits and vegetables. Half of your plate should be fruits and vegetables. Include lean proteins like poultry and fish. How do I count calories when eating out? Ask for smaller portion sizes. Consider sharing an entree and sides instead of getting your own entree. If you get your own entree, eat only half. Ask for a box at the beginning of your meal and put the rest of your entree in it so you are not tempted to eat it. If calories are listed on the menu, choose the lower calorie options. Choose dishes that include vegetables, fruits, whole grains, low-fat dairy products, and lean protein. Choose items that are boiled, broiled, grilled, or steamed. Stay away from items that are buttered, battered, fried, or served with cream sauce. Items labeled crispy are usually fried, unless stated otherwise. Choose water, low-fat milk, unsweetened iced tea, or other drinks without added sugar. If you want an alcoholic beverage, choose a lower calorie option such as a glass of wine or light beer. Ask for dressings, sauces, and syrups on the side. These are usually high in calories, so you should limit the amount you eat. If you want a salad, choose a garden salad and ask for grilled meats. Avoid extra toppings like guardado, cheese, or fried items. Ask for the dressing on the side, or ask for olive oil and vinegar or lemon to use as dressing. Estimate how many servings of a food you are given. For example, a serving of cooked rice is cup or about the size of half a baseball. Knowing serving sizes will help you be aware of how much food you are eating at restaurants. The list below tells you how big or small some common portion sizes are based on everyday objects: ?1 oz 4 stacked dice. ?3 oz 1 deck of cards. ?1 tsp 1 . ?1 Tbsp a ping-pong ball. ?2 Tbsp 1 ping-pong ball. ? cup baseball. ?1 cup 1 baseball. Summary Calorie counting means keeping track of how many calories you eat and drink each day. If you eat fewer calories than your body needs, you should lose weight. A healthy amount of weight to lose per week is usually 1 2 lb (0.5 0.9 kg). This usually means reducing your daily calorie intake by 500 750 calories. The number of calories in a food can be found on a Nutrition Facts label. If a food does not have a Nutrition Facts label, try to look up the calories online or ask your dietitian for help. Use your calories on foods and drinks that will fill you up, and not on foods and drinks that will leave you hungry. Use smaller plates, glasses, and bowls to prevent overeating. This information is not intended to replace advice given to you by your health care provider. Make sure you discuss any questions you have with your health care provider. Document Released: 05/01/2006 Document Revised: 01/18/2019 Document Reviewed: 03/31/2017 [employer] Patient Education 2020 [employer]. 11/22/2021 14:03:25 Benign Prostatic Hyperplasia Benign Prostatic Hyperplasia Benign prostatic hyperplasia (BPH) is an enlarged prostate gland that is caused by the normal aging process and not by cancer. The prostate is a walnut-sized gland that is involved in the production of semen. It is located in front of the rectum and below the bladder. The bladder stores urine and the urethra is the tube that carries the urine out of the body. The prostate may get bigger as a man gets older. An enlarged prostate can press on the urethra. This can make it harder to pass urine. The build-up of urine in the bladder can cause infection. Back pressure and infection may progress to bladder damage and kidney (renal) failure. What are the causes? This condition is part of a normal aging process. However, not all men develop problems from this condition. If the prostate enlarges away from the urethra, urine flow will not be blocked. If it enlarges toward the urethra and compresses it, there will be problems passing urine. What increases the risk? This condition is more likely to develop in men over the age of 50 years. What are the signs or symptoms? Symptoms of this condition include: Getting up often during the night to urinate. Needing to urinate frequently during the day. Difficulty starting urine flow. Decrease in size and strength of your urine stream. Leaking (dribbling) after urinating. Inability to pass urine. This needs immediate treatment. Inability to completely empty your bladder. Pain when you pass urine. This is more common if there is also an infection. Urinary tract infection (UTI). How is this diagnosed? This condition is diagnosed based on your medical history, a physical exam, and your symptoms. Tests will also be done, such as: A post-void bladder scan. This measures any amount of urine that may remain in your bladder after you finish urinating. A digital rectal exam. In a rectal exam, your health care provider checks your prostate by putting a lubricated, gloved finger into your rectum to feel the back of your prostate gland. This exam detects the size of your gland and any abnormal lumps or growths. An exam of your urine (urinalysis). A prostate specific antigen (PSA) screening. This is a blood test used to screen for prostate cancer. An ultrasound. This test uses sound waves to electronically produce a picture of your prostate gland. Your health care provider may refer you to a specialist in kidney and prostate diseases (urologist). How is this treated? Once symptoms begin, your health care provider will monitor your condition (active surveillance or watchful waiting). Treatment for this condition will depend on the severity of your condition. Treatment may include: Observation and yearly exams. This may be the only treatment needed if your condition and symptoms are mild. Medicines to relieve your symptoms, including: ?Medicines to shrink the prostate. ?Medicines to relax the muscle of the prostate. Surgery in severe cases. Surgery may include: ?Prostatectomy. In this procedure, the prostate tissue is removed completely through an open incision or with a laparoscope or robotics. ?Transurethral resection of the prostate (TURP). In this procedure, a tool is inserted through the opening at the tip of the penis (urethra). It is used to cut away tissue of the inner core of the prostate. The pieces are removed through the same opening of the penis. This removes the blockage. ?Transurethral incision (TUIP). In this procedure, small cuts are made in the prostate. This lessens the prostate's pressure on the urethra. ?Transurethral microwave thermotherapy (TUMT). This procedure uses microwaves to create heat. The heat destroys and removes a small amount of prostate tissue. ?Transurethral needle ablation (TUNA). This procedure uses radio frequencies to destroy and remove a small amount of prostate tissue. ?Interstitial laser coagulation (ILC). This procedure uses a laser to destroy and remove a small amount of prostate tissue. ?Transurethral electrovaporization (TUVP). This procedure uses electrodes to destroy and remove a small amount of prostate tissue. ?Prostatic urethral lift. This procedure inserts an implant to push the lobes of the prostate away from the urethra. Follow these instructions at home: Take [id number]-[id number] and prescription medicines only as told by your health care provider. Monitor your symptoms for any changes. Contact your health care provider with any changes. Avoid drinking large amounts of liquid before going to bed or out in public. Avoid or reduce how much caffeine or alcohol you drink. Give yourself time when you urinate. Keep all follow-up visits as told by your health care provider. This is important. Contact a health care provider if: You have unexplained back pain. Your symptoms do not get better with treatment. You develop side effects from the medicine you are taking. Your urine becomes very dark or has a bad smell. Your lower abdomen becomes distended and you have trouble passing your urine. Get help right away if: You have a fever or chills. You suddenly cannot urinate. You feel lightheaded, or very dizzy, or you faint. There are large amounts of blood or clots in the urine. Your urinary problems become hard to manage. You develop moderate to severe low back or flank pain. The flank is the side of your body between the ribs and the hip. These symptoms may represent a serious problem that is an emergency. Do not wait to see if the symptoms will go away. Get medical help right away. Call your local emergency services (911 in the [place] Do not drive yourself to the hospital. Summary Benign prostatic hyperplasia (BPH) is an enlarged prostate that is caused by the normal aging process and not by cancer. An enlarged prostate can press on the urethra. This can make it hard to pass urine. This condition is part of a normal aging process and is more likely to develop in men over the age of 50 years. Get help right away if you suddenly cannot urinate. This information is not intended to replace advice given to you by your health care provider. Make sure you discuss any questions you have with your health care provider. Document Released: 05/01/2006 Document Revised: 03/26/2019 Document Reviewed: 06/05/2017 [employer] Patient Education 2020 [employer]. Follow Up Care 05/24/2021 14:35:31 With:Boubacar NIÑO MD, URL Address: [facility] [address] [place] [address]- [phone] When:Within 1 Year(s) Comments:f/u in 1 year [facility] Evaluation + Plan note Future Appointments Appointment Date:11/28/2022 12:15:00 PM Scheduled Provider:Boubacar NIÑO MD Location:[facility] Appointment Type:URO Office Visit [facility] Evaluation + Plan note Future Appointments Appointment Date:12/04/2023 01:45:00 PM Scheduled Provider:Boubacar NIÑO MD Location:[facility] Appointment Type:URO Office Visit [facility] Evaluation + Plan note Future Appointments Appointment Date:05/18/2023 02:20:00 PM Scheduled Provider:LUCIA Guzman APRN, [place] [facility] Location:[facility] Appointment Type:URO Office Visit Appointment Date:08/02/2023 01:00:00 PM Scheduled Provider: Location:[facility] Appointment Type: Medicare Wellness Subsequent Appointment Date:10/26/2023 01:15:00 PM Scheduled Provider:Pk Muse MD Location:[facility] Appointment Type: Open Appointment Date:12/04/2023 01:45:00 PM Scheduled Provider:Boubacar NIÑO MD Location:[facility] Appointment Type:URO Office Visit [facility] Evaluation + Plan note Future Appointments Appointment Date:08/02/2023 01:00:00 PM Scheduled Provider: Location:[facility] Appointment Type: Medicare Wellness Subsequent Appointment Date:10/26/2023 01:15:00 PM Scheduled Provider:Pk Muse MD [facility] App[facility] Type: Open Appointment Date:12/04/2023 01:45:00 PM Scheduled Provider:Boubacar NIÑO MD Location:[facility] Appointment Type:URO Office Visit Future Scheduled TestsCT Urogram 05/18/23 [facility] Evaluation + Plan note Future Appointments Appointment Date:08/02/2023 01:00:00 PM Scheduled Provider: Location:[facility] Appointment Type: Medicare Wellness Subsequent Appointment Date:10/26/2023 01:15:00 PM Scheduled Provider:Pk Muse MD [facility] Appoint[facility] Type:FM Open Appointment Date:12/04/2023 01:45:00 PM Scheduled Provider:Boubacar NIÑO MD Location:[facility] Appointment Type:URO Office Visit Diagnostic Tests PendingUroVysion Fish and Urine Cyto ([facility]) 05/18/23 Future Scheduled TestsCT Urogram 05/18/23 [facility] Evaluation + Plan note Future Appointments Appointment Date:2023 01:45:00 PM Scheduled Provider: Location:[facility] Appointment Type:Urology FT Appointment Date:08/02/2023 11:00:00 AM Scheduled Provider: Location:[facility] Appointment Type: Medicare Wellness Subsequent Appointment Date:10/26/2023 01:15:00 PM Scheduled Provider:Pk uMse MD [facility] Appointment Type: Open Appointment Date:12/04/2023 01:45:00 PM Scheduled Provider:Boubacar NIÑO MD Location:[facility] Appointment Type:URO Office Visit [facility] Evaluation + Plan note Future Appointments Appointment Date:08/02/2023 11:00:00 AM Scheduled Provider: [facility] Appointment Type: Medicare Wellness Subsequent Appointment Date:09/11/2023 01:30:00 PM Scheduled Provider:Boubacar NIÑO MD Location:[facility] Appointment Type:URO Office Visit Appointment Date:10/26/2023 01:15:00 PM Scheduled Provider:Pk Muse MD Location:[facility] Appointment Type: Open Appointment Date:12/04/2023 01:45:00 PM Scheduled Provider:Boubacar NI[facility]O MD [facility] Type:[facility]O Office Visit [facility] Evaluation + Plan note Future Appointments Appointment Date:10/26/2023 01:00:00 PM Scheduled Provider:Pk Muse MD Location:[facility] Appointment Type: Open Appointment Date:12/04/2023 01:45:00 PM Scheduled Provider:Boubacar NIÑO MD Location:[facility] Appointment Type:URO Office Visit [facility] Evaluation + Plan note Future Appointments Appointment Date:02/19/2024 02:45:00 PM Scheduled Provider:Boubacar NIÑO MD Location:[facility] Appointment Type:URO Office Visit Appointment Date:10/24/2024 01:00:00 PM Scheduled Provider:Pk Muse MD Location:[facility] Appointment Type: Medicare Wellness Subsequent [facility] Hospital course Narrative No data available for this section [facility] Hospital Discharge instructions No data available for this section [facility] Progress note No data available for this section [facility] Summary Purpose Family History No Family History Records Found No data available for this section No data available for this section No data available for this section No data available for this section No Family History Records Found No data available for this section No data available for this section No data available for this section No Family History Records FoundNo Family History Records Found Advance Directives No Advanced Directives Records FoundNo Advanced Directives Records FoundNo Advanced Directives Records FoundNo Advanced Directives Records Found Additional Source Comments Care Team (unrecognized sect ion and content) Personnel Name: Tristan Pittman MD Address: [address] [place] [address] Name: Jo Ann Teague Personnel Name: Tristan Pittman MD Address: Address: [address] [place] [address] Name: Jo Ann Teague Personnel Name: Pk Muse MD Address: Address: [address] [place] [address] Name: Jo Ann Teague Personnel Name: Pk Muse MD Address: Address: [address] [place] [address] Name: Jo Ann Teague Personnel Name: Pk Muse MD Address: Address: [address] [place] [address] Name: Jo Ann Teague Personnel Name: Pk Muse MD Address: Address: [address] [place] [address] Name: Jo Ann Teague Personnel Name: Pk Muse MD Address: Address: [facility] Name: Sergo Teaguehanie Chasidy Personnel Name: Pk Muse MD Address: Address: [facility] Name: Jo Ann Teague Personnel Name: Pk Muse MD Address: Address: [facility] [address] Name: [place] Jo Ann M (unrecognized sect ion and content) No Status Records FoundNo Status Records FoundNo Status Records FoundNo Status Records Found INFORMATION SOURCE (unrecogn ized section and content) DATE CREATED AUTHOR 07/10/2022 [facility] DATE CREATED AUTHOR AUTHOR'S ORGANIZ ATION 06/13/2023 [facility] EPIC DATE CREATED AUTHOR AUTHOR'S ORGANIZ ATION 07/25/2024 [facility] DATE CREATED AUTHOR AUTHOR'S ORGANIZ ATION 08/21/2024 [facility] FOR RECORDS PERTAINING TO PATIENTS WHO ARE OR HAVE BEEN ENROLLED IN A CHEMICAL DEPENDENCY/SUBSTANCEABUSE PROGRAM, SOME INFORMATION MAY BE OMITTED. This clinical summary was aggregated from multiple sources. Caution should be exercised in using it in the provision of clinical care. This summary normalizes information from multiple sources, and as a consequence, information in this document may materially change the coding, format and clinical context of patient data. In addition, data may be omitted in some cases. CLINICAL DECISIONS SHOULD BE BASED ON THE PRIMARY CLINICAL RECORDS. [facility] [email or web address] provides no warranty or guarantee of the accuracy or completeness of information in this document.
[2024-09-25 11:31] LABS: Prostate Specific Antigen Dx 0.38 ng/mL (<=4.00)
[2024-09-26 04:07] LABS: Testosterone 575 ng/dL (264-916)
== END 2024-09-25 09:30 | disposition home or self-care (01) ==
LOC: LAB 09:31
PROVIDERS: PCP Family Medicine; Visit Provider Urology
DX: E29.1 Testicular hypofunction (principal); N40.1 Benign prostatic hyperplasia with lower urinary tract symptoms
CPT/HCPCS: 36415; 84153; 84403